=== PATIENT | male | born 1990 | race Hispanic/Latino ===

== ENCOUNTER 2018-11-29 02:53 | Emergency (ER) | payer SELFPAY ==
--- OUTSIDE RECORDS SUMMARY | 2018-11-29 02:56 | XMS REPORT ---
:1990 [facility] Address [address] [place] [address] [address] [place] [address] Care Team Providers Name Role Phone Unavailable Unavailable Unavailable Payers Payer Name Policy Type Policy Number Effective Date Expiration Date Problems This patient has no known problems. Allergies, Adverse Reactions, Alerts Allergy Allergy Status Severity Reaction(s) Onset Inactive Treating Comments Name Type Date Date Clinician No Known DA Active U 2016-03 Allergies -11 00:00:0 0 Medications This patient has no known medications. Results Test Description Test Time Test Comments Text Results Atomic Results Result Comments - 2018-10-07 FAX: Rafat Giordano MD [place]: St: ABDOMEN 09:06:00 REG LTD Name: YARY KRUSE [facility] : 1990 Age/S: 28/M [address] [facility] Unit # : [id number] Loc: [place], [place] [id number] Acct : [id number] Dis Date: Status: REG ER PHONE #: [phone] Exam Date: 10/07/2018 0854 FAX #: [phone] Reason: RUQ pain EXAMS: CPT CODE: [id number] US ABDOMEN LTD [id number] EXAMINATION: - US ABDOMEN LTD. LOCATION: R16. HISTORY: RUQ pain. COMPARISON: CT abdomen and pelvis 10/07/2018. TECHNIQUE : Multiple grayscale, pulse Doppler and color Doppler images of the right upper quadrant of the abdomen were obtained. FINDINGS: The visualized liver parenchyma is homogeneous in echogenicity. The main portal vein is patent. There is no intra or extrahepatic biliary ductal dilatation. The common duct measures 5 mm. The contracted gallbladder demonstrates calculi with posterior shadowing demonstrating PRASAD sign. The gallbladder wall is prominent at 4-5 mm. Nonvisualization of pancreas due to overlying bowel gas. The right kidney measures 11.5 cm. There is no hydronephrosis. The visualized portions of abdominal aorta and IVC appear unremarkable. IMPRESSION: Contracted gallbladder with calculi demonstrating "PRASAD sign". Gallbladder wall prominence, presumably due to underdistention. Electronically Signed by Daniel Toribio on 2018 at 0906 Reported and signed by: Jonas Toribio M.D. CC: Rafat Giordano MD Technologist: LETTY MNIOR Trnscrd Date/Time/By: 10/07/2018 (0906) : By: [email or web address] PAGE 1 Signed Report FAX: Rafat Giordano MD [place]: St: REG --------- Name: YARY KRUSE [facility] : 1990 Age/S: 28/M [address] [facility] Unit # : [id number] Loc: [place], [place] : [place] [id number] Acct : [id number] Dis Date: Status: REG ER PHONE #: [phone] Exam Date: 10/07/2018 0854 FAX #: [phone] Reason: RUQ pain EXAMS: CPT CODE: [id number] US ABDOMEN LTD [id number] <Continued> Orig Print D/T: S: 10/07/2018 (8703) PAGE 2 Signed Report - CT ABD 2018-10-07 FAX: Rafat Giordano MD [place]: St: PELVIS 08:51:00 REG W/CONT Name: YARY KRUSE [facility] : 1990 Age/S: 28/M [address] [facility] Unit: [id number] Loc: [place], [place]: [place] [id number] Acct: [id number] Dis Date: Status: REG ER PHONE #: [phone] Exam Date: 10/07/2018 0840 FAX #: [phone] Reason: diffuse abd tenderness EXAMS: CPT CODE: [id number] CT ABD PELVIS W/CONT 81009 Contrast-enhanced CT of the abdomen and pelvis Location R 16 CLINICAL INDICATION: Abdominal pain COMPARISON: 05/02/[address] is obtained from lung bases to inferior pubic rami after intravenous contrast with axial, coronal and sagittal reconstructions provided. One or more the following dose reduction techniques were used: Automated exposure control, adjustment of mA and/or kV according to patient size, and use of iterative reconstruction technique. DLP 779.60 mGy-cm. Lung bases are clear. Heart is normal in size. Great vessels are normal in caliber. Liver, spleen, pancreas, stomach, kidneys and adrenal glands are unremarkable. Gallbladder wall appears thickened. Unopacified bowel is within normal limits. Normal appendix is noted. Urinary bladder, prostate, rectum and perirectal soft tissues are within normal limits. Bony structures are unremarkable. IMPRESSION: Gallbladder wall may be thickened, otherwise unremarkable CT of the abdomen and pelvis at 0851 Reported and signed by: Latisha Eller M.D. CC: Rafat Giordano MD Technologist: DIAMOND BRISCOE Trnscrd Dt/Tm: 10/07/2018 (0851) Gloria Orig Print D/ T: S: 10/07/2018 (0854 PAGE 1 Signed Report DRUGS OF ABUSE SCREEN UR 2018-10-07 08:03:00 Test Item Value Reference Range Comments URN COCAINE (test code=COCAURN) NEGATIVE NEGATIVE Cocaine cut-off concentration: 300 ng/mL URN CANNABINOIDS (test NEGATIVE NEGATIVE Cannabinoids cut-off code=CANNABURN) concentration: 50 ng/mL URN AMPHETAMINE (test NEGATIVE NEGATIVE Amphetamine cut-off code=AMPHETURN) concentration: 1000 ng/mL URN BARBITURATE (test NEGATIVE NEGATIVE Barbiturate cut-off code=BARBITURN) concentration: 200 ng/mL URN BENZODIAZEPINE (test NEGATIVE NEGATIVE Benzodiazepine cut-off code=BENZOURN) concentration: 200 ng/mL URN OPIATES (test code=OPIATURN) NEGATIVE NEGATIVE Opiates cut-off concentration: 200 ng/mL URN PHENCYCLIDINE (PCP) (test NEGATIVE NEGATIVE Phencyclidine(PCP) cut-off code=PHENCURN) concentration: 25 ng/ml URN METHADONE (test code=METHAURN) NEGATIVE NEGATIVE Methadone cut-off concentration: 300 ng/mL Specimen comments: Clean CatchBASIC METABOLIC [id number] 08:03:00 Test Item Value Reference Range Comments SODIUM (test code=NA) 139 mmol/l 134.0-147.0 POTASSIUM (test code=K) 3.7 mmol/L 3.6-5.2 CHLORIDE (test code=CL) 108 mmol/l 98.0-107.0 CARBON DIOXIDE (test code=CO2) 24.0 mmol/l 21.0-33.0 ANION GAP (test code=GAP) 10.7 0-20 GLUCOSE (test code=GLU) 91 mg/dl 70.0-110.0 BLOOD UREA NITROGEN (test code=BUN) 25 mg/dl 7.0-18.0 CREATININE (test code=CREAT) 1.17 mg/dL 0.60-1.30 GFR NON BLACK (test code=GFRNONBLACK) 78 mL/min 105-110 GFR BLACK (test code=GFRBLACK) 94 mL/min 127-133 CALCIUM (test code=CA) 8.2 mg/dl 8.0-10.5 HEPATIC FUNCTION PANEL [id number] 08:03:00 Test Item Value Reference Range Comments TOTAL PROTEIN (test code=PROT) 7.7 gm/dL 6.4-8.2 ALBUMIN (test code=ALB) 4.0 gm/dl 3.2-4.7 BILIRUBIN TOTAL (test code=BILT) 0.5 mg/dl 0.0-1.0 BILIRUBIN DIRECT (test code=BILD) 0.1 mg/dl 0.0-0.3 SGOT/AST (test code=AST) 13 Units/L 15.0-37.0 SGPT/ALT (test code=ALT) 29 Units/L 12.0-78.0 ALKALINE PHOSPHATASE TOTAL (test code=ALKP) 48 Units/L 50.0-136.0 [id number] 08:03:00 Test Item Value Reference Range Comments LIPASE (test code=LIP) 283 Units/L 65.0-230.0 URINALYSIS [id number] 07:56:00 Test Item Value Reference Range Comments UA COLOR (test code=COLU) YELLOW UA APPEARANCE (test code=APPU) CLEAR UA GLUCOSE DIPSTICK (test code=DGLUU) NORMAL mg/dl NORMAL UA BILIRUBIN DIPSTICK (test code=BILU) NEGATIVE mg/dL NEGATIVE UA KETONE DIPSTICK (test code=KETU) NEGATIVE mg/dl NEGATIVE UA SPECIFIC GRAVITY (test code=SGU) 1.020 1.000-1.030 UA BLOOD DIPSTICK (test code=STEPHEN) NEGATIVE Daryl/micL NEGATIVE UA PH DIPSTICK (test code=JA) 6.0 5.0-9.0 UA PROTEIN DIPSTICK (test code=PROU) NEGATIVE mg/dl NEGATIVE UA UROBILINIOGEN DIPSTICK (test code=URO) NORMAL mg/dl NORMAL UA NITRITE DIPSTICK (test code=DANIELLA) NEGATIVE NEGATIVE UA LEUKOCYTE ESTERASE DIPSTICK (test NEGATIVE Vanessa/micL NEGATIVE code=LEUU) UA WBC (test code=WBCU) 1-3/HPF WBC/HPF NONE UA RBC (test code=RBCU) 1-3 RBC/HPF 0-3 UA EPITHELIAL CELLS (test code=EPIU) 2-5 EPI/HPF 0-3 UA BACTERIA (test code=BACU) FEW NONE Specimen comments: Clean CatchBASIC METABOLIC [id number] 07:55:00 Test Item Value Reference Range Comments SODIUM (test code=NA) 139 mmol/l 134.0-147.0 POTASSIUM (test code=K) 3.7 mmol/L 3.6-5.2 CHLORIDE (test code=CL) 108 mmol/l 98.0-107.0 CARBON DIOXIDE (test code=CO2) 24.0 mmol/l 21.0-33.0 ANION GAP (test code=GAP) 10.7 0-20 GLUCOSE (test code=GLU) mg/dl 70.0-110.0 BLOOD UREA NITROGEN (test code=BUN) mg/dl 7.0-18.0 CREATININE (test code=CREAT) mg/dL 0.60-1.30 GFR NON BLACK (test code=GFRNONBLACK) mL/min 105-110 GFR BLACK (test code=GFRBLACK) mL/min 127-133 CALCIUM (test code=CA) mg/dl 8.0-10.5 HEPATIC FUNCTION PANEL [id number] 07:55:00 Test Item Value Reference Range Comments TOTAL PROTEIN (test code=PROT) gm/dL 6.4-8.2 ALBUMIN (test code=ALB) gm/dl 3.2-4.7 BILIRUBIN TOTAL (test code=BILT) mg/dl 0.0-1.0 BILIRUBIN DIRECT (test code=BILD) mg/dl 0.0-0.3 SGOT/AST (test code=AST) Units/L 15.0-37.0 SGPT/ALT (test code=ALT) Units/L 12.0-78.0 ALKALINE PHOSPHATASE TOTAL (test code=ALKP) Units/L 50.0-136.0 [id number] 07:55:00 Test Item Value Reference Range Comments LIPASE (test code=LIP) Units/L 65.0-230.0 CBC W/AUTO [id number] 07:53:00 Test Item Value Reference Range Comments WHITE BLOOD CELL (test code=WBC) 7.2 K/mm3 4.5-11.0 RED BLOOD CELL (test code=RBC) 5.32 M/mm3 4.40-5.90 HEMOGLOBIN (test code=HGB) 15.5 gm/dL 13.0-17.0 HEMATOCRIT (test code=HCT) 48.8 % 36.0-48.0 MEAN CELL VOLUME (test code=MCV) 91.7 UM3 80.0-94.0 MEAN CELL HGB (test code=MCH) 29.1 UUG 25.5-32.5 MEAN CELL HGB CONCETRATION (test code=MCHC) 31.8 gm/dL 29.0-35.5 RED CELL DISTRIBUTION WIDTH (test code=RDW) 13.0 % 11.5-15.0 RED CELL DISTRIBUTION WIDTH SD (test 43.6 fL 34.8-50.2 code=RDW-SD) PLATELET COUNT (test code=PLT) 189 K/mm3 150-400 MEAN PLATELET VOLUME (test code=MPV) 11.6 fl 7.4-10.4 NEUTROPHIL % (test code=NT%) 64.4 % 49.0-76.0 IMMATURE GRANULOCYTE % (test code=IG%) 0.6 % 0.0-0.4 LYMPHOCYTE % (test code=LY%) 25.0 % 23.0-38.0 MONOCYTE % (test code=MO%) 7.0 % 1.0-10.0 EOSINOPHIL % (test code=EO%) 2.4 % 1.0-5.0 BASOPHIL % (test code=BA%) 0.6 % 0.0-1.0 NEUTROPHIL # (test code=NT#) 4.6 K/mm3 2.4-6.3 IMMATURE GRANULOCYTE # (test code=IG#) 0.04 x10 3/uL 0.00-0.07 LYMPHOCYTE # (test code=LY#) 1.8 K/mm3 1.2-4.0 MONOCYTE # (test code=MO#) 0.5 K/mm3 0.0-0.6 EOSINOPHIL # (test code=EO#) 0.2 K/MM3 0.0-0.7 BASOPHIL # (test code=BA#) 0.0 K/mm3 0.0-0.2 URINALYSIS [id number] 07:51:00 Test Item Value Reference Range Comments UA COLOR (test code=COLU) YELLOW UA APPEARANCE (test code=APPU) CLEAR UA GLUCOSE DIPSTICK (test code=DGLUU) NORMAL mg/dl NORMAL UA BILIRUBIN DIPSTICK (test code=BILU) NEGATIVE mg/dL NEGATIVE UA KETONE DIPSTICK (test code=KETU) NEGATIVE mg/dl NEGATIVE UA SPECIFIC GRAVITY (test code=SGU) 1.020 1.000-1.030 UA BLOOD DIPSTICK (test code=STEPHEN) NEGATIVE Daryl/micL NEGATIVE UA PH DIPSTICK (test code=JA) 6.0 5.0-9.0 UA PROTEIN DIPSTICK (test code=PROU) NEGATIVE mg/dl NEGATIVE UA UROBILINIOGEN DIPSTICK (test code=URO) NORMAL mg/dl NORMAL UA NITRITE DIPSTICK (test code=DANIELLA) NEGATIVE NEGATIVE UA LEUKOCYTE ESTERASE DIPSTICK (test NEGATIVE Vanessa/micL NEGATIVE code=LEUU) UA WBC (test code=WBCU) WBC/HPF NONE UA RBC (test code=RBCU) RBC/HPF 0-3 UA EPITHELIAL CELLS (test code=EPIU) EPI/HPF 0-3 UA BACTERIA (test code=BACU) NONE Specimen comments: Clean Catch
[2018-11-29 03:35] LABS: Absolute Lymphocytes (CBC) 1.9 K/uL (0.7-4.9); Basophils % 0.5 % (0-1.3); Hematocrit 45.3 % (39.6-49.0); Lymphocytes % 14.4 % (15.3-44.8); MPV 9.8 fL (7.6-11.3); RBC Red Blood Cell Count 5.07 M/uL (4.33-5.43)
[2018-11-29] MEDS ORDERED: ONDANSETRON 4 MG/2 ML VIAL ONE (03:49)
[2018-11-29] MEDS ORDERED: HYDROMORPHONE HCL 1 MG/ML INJ ONE (03:49)
[2018-11-29] MEDS ORDERED: NA CHLORIDE 0.9% 1,000 ML ONE ×2 (03:50→07:33)
[2018-11-29] MEDS ORDERED: FAMOTIDINE 20 MG/2 ML VIAL IV ONE (03:50)
[2018-11-29 04:03] LABS: Albumin 4.3 g/dL (3.4-5.0); Bilirubin Direct 0.2 mg/dL (0-0.2); Bilirubin Total 0.4 mg/dL (0.2-1.0); Potassium 3.7 mmol/L (3.5-5.1); Protein, Total 7.7 g/dL (6.4-8.2)
--- NOTE | 2018-11-29 06:10 | ER ---
Nurse's Notes [facility] Name: Fawad Olivarez Age: 28 yrs Sex: Male : 1990 Arrival Date: 11/29/2018 Time: 02:55 Bed 13 Private MD: Diagnosis: Abdominal tenderness;Cholecystitis;Cholelithiasis Presentation: 11/29 03:13 Presenting complaint: Patient states: I am having pain on the right side of my stomach jb4 that started 1 hour ago. Transition of care: patient was not received from another setting of care. Onset of symptoms was November 29, 2018. Risk Assessment: Do you want to hurt yourself or someone else? Patient reports no desire to harm self or others. Initial Sepsis Screen: Does the patient meet any 2 criteria? No. Patient's initial sepsis screen is negative. Does the patient have a suspected source of infection? Yes: Acute abdominal pain. Care prior to arrival: None. 03:13 Method Of Arrival: Ambulatory jb4 03:13 Acuity: LASHAY 3 jb4 Historical: - Allergies: 03:15 No Known Allergies; jb4 - Home Meds: 03:15 None [Active]; jb4 - PMHx: 03:15 Seizures; jb4 - PSHx: 03:15 None; jb4 - Immunization history:: Adult Immunizations up to date. - Social history:: Smoking status: Patient/guardian denies using tobacco, Patient uses alcohol, occasionally. - Ebola Screening: : No symptoms or risks identified at this time. - Family history:: not pertinent. Screenin:15 Abuse screen: Denies threats or abuse. Nutritional screening: No deficits noted. jb4 Tuberculosis screening: No symptoms or risk factors identified. Fall Risk None identified. Assessment: 03:15 General: Appears in no apparent distress. uncomfortable, Behavior is calm, cooperative, jb4 appropriate for age. Pain: Complains of pain in right upper quadrant Pain does not radiate. Pain currently is 10 out of 10 on a pain scale. Quality of pain is described as stabbing. Neuro: Level of Consciousness is awake, alert, obeys commands, Oriented to person, place, time, situation. Cardiovascular: Patient's skin is warm and dry. Respiratory: Airway is patent Respiratory effort is unlabored, shallow, Respiratory pattern is regular, symmetrical. GI: Reports upper abdominal pain. : No signs and/or symptoms were reported regarding the genitourinary system. EENT: No signs and/or symptoms were reported regarding the EENT system. Derm: Skin is intact, Skin is pink, warm \T\ dry. Musculoskeletal: Circulation, motion, and sensation intact. Range of motion: intact in all extremities. 04:48 Reassessment: Patient appears in no apparent distress at this time. Patient and/or jb4 family updated on plan of care and expected duration. Pain level reassessed. Patient is alert, oriented x 3, equal unlabored respirations, skin warm/dry/pink. PT reports feeling pain, but that it is tolerable Patient states feeling better. Respiratory: Airway is patent Respiratory effort is even, unlabored, Respiratory pattern is regular, symmetrical. 05:45 Reassessment: Patient appears in no apparent distress at this time. Patient and/or jb4 family updated on plan of care and expected duration. Pain level reassessed. Patient is alert, oriented x 3, equal unlabored respirations, skin warm/dry/pink. 07:00 Reassessment: Patient appears in no apparent distress at this time. Patient and/or jb4 family updated on plan of care and expected duration. Pain level reassessed. Patient is alert, oriented x 3, equal unlabored respirations, skin warm/dry/pink. PT is resting in bed, reports pain is tolerable. report given to TAYA Howard. IV flushes with ease, antibiotics running. 07:05 General: Appears in no apparent distress. comfortable, Behavior is calm, cooperative. rb1 Pain: Pain currently is 5 out of 10 on a pain scale. Neuro: Level of Consciousness is awake, alert, obeys commands, Oriented to person, place, time, situation. Cardiovascular: Capillary refill < 3 seconds is brisk in bilateral fingers. Respiratory: Airway is patent Respiratory effort is even, unlabored, Respiratory pattern is regular, symmetrical. GI: Reports upper abdominal pain. : No signs and/or symptoms were reported regarding the genitourinary system. Derm: Skin is pink, warm \T\ dry. 07:39 Reassessment: Report called to TAYA Torres at [facility]. jb4 08:00 Reassessment: Patient appears in no apparent distress at this time. Patient and/or rb1 family updated on plan of care and expected duration. Pain level reassessed. Patient is alert, oriented x 3, equal unlabored respirations, skin warm/dry/pink. 08:05 Reassessment: US came to get the pt. Informed her that EMS would be here soon to take rb1 the pt. to [place]. Verbalized understanding. Vital Signs: 03:15 BP 125 / 83; Pulse 56; Resp 16; Temp 98.4(O); Pulse Ox 100% on R/A; Weight 108.86 kg jb4 (R); Height 6 ft. 5 in. (195.58 cm) (R); Pain 10/10; 04:45 BP 117 / 76; Pulse 51; Resp 16; Pulse Ox 98% on R/A; jb4 05:45 BP 112 / 71; Pulse 59; Resp 16; Pulse Ox 100% on R/A; jb4 07:15 BP 111 / 67; Pulse 54; Resp 18; Temp 97.6(O); Pulse Ox 100% on R/A; jb4 08:10 BP 115 / 65; Pulse 59; Resp 17; Temp 97.9(O); Pulse Ox 99% on R/A; Pain 5/10; rb1 03:15 Body Mass Index 28.46 (108.86 kg, 195.58 cm) jb4 ED Course: 02:55 Patient arrived in ED. ss2 03:06 Hair Jones, RN is Primary Nurse. jb4 03:06 Elian Foley MD is Attending Physician. timothy 03:15 Triage completed. jb4 03:15 Arm band placed on left wrist. jb4 03:15 Patient has correct armband on for positive identification. Bed in low position. Call jb4 light in reach. Side rails up X2. Pulse ox on. NIBP on. 03:25 Initial lab(s) drawn, by me, sent to lab. Inserted saline lock: 20 gauge in left jb4 antecubital area, using aseptic technique. 04:56 CT completed. Patient tolerated procedure well. Patient moved to CT via stretcher. Patient moved back from CT. 04:59 CT Abd/Pelvis - IV Contrast Only In Process Unspecified. EDMS 06:[address] Foley with Jackie from the [facility]. eb 06:34 connected the GI content designer for [facility] Dr. Spencer with Dr. Foley for patient eb transfer consultation. 06:47 connected the hospitalist content designer Dr. Lin for [facility] with Dr. Foley for eb patient transfer consultation. 06:[address] Lin again with Dr. Foley for patient transfer consultation. eb 06:56 administrative approval given by Jackie Sung RN scanning coordinator/ patient has been eb accepted to [facility] Bed 1143/ Dr. Angel has accepted the patient in transfer/ report to be called to [phone]. 07:00 Report given to TAYA Howard. jb4 08:14 US Abdomen Limited In Process Unspecified. EDMS 08:19 No provider procedures requiring assistance completed. Patient transferred, IV remains rb1 in place. Administered Medications: 03:45 Drug: Pepcid 20 mg Route: IVP; Site: left antecubital; jb4 06:01 Follow up: Response: No adverse reaction jb4 03:46 Drug: Zofran 4 mg Route: IVP; Site: left antecubital; jb4 04:10 Follow up: Response: No adverse reaction; Nausea is decreased jb4 03:48 Drug: NS 0.9% 1000 ml Route: IV; Rate: 1 bolus; Site: left antecubital; jb4 04:45 Follow up: Response: No adverse reaction; IV Status: Completed infusion; IV Intake: jb4 1000ml 03:49 Drug: Dilaudid 1 mg Route: IVP; Site: left antecubital; jb4 04:10 Follow up: Response: No adverse reaction; Pain is decreased jb4 06:29 Drug: Zosyn 3.375 grams Route: IVPB; Infused Over: 60 mins; Site: left antecubital; jb4 07:22 Drug: NS 0.9% 1000 ml Route: IV; Rate: 125 ml/hr; Site: left antecubital; jb4 08:19 Follow up: IV Status: Infusion continued upon transfer rb1 Intake: 04:45 IV: 1000ml; Total: 1000ml. jb4 Outcome: 06:10 ER care complete, transfer ordered by MD. aguirre 08:19 Patient left the ED. rb1 08:19 Transferred by ground EMS to [facility], Transfer form completed. rb1 08:19 Condition: stable 08:19 Instructed on the need for transfer. Signatures: Dispatcher [employer] Elian Wills MD MD cha Hagler, Ervin eh Barber, Rebecca, RN RN [facility] Irasema [facility] Hair Jones RN RN jb4 Viktoriya Sumner Corrections: (The following items were deleted from the chart) 06:54 06:47 connected the hospitalist content designer for [facility] with Dr. Foley for eb patient transfer consultation. 07:31 07:00 Reassessment: Patient appears in no apparent distress at this time. Patient jb4 and/or family updated on plan of care and expected duration. Pain level reassessed. Patient is alert, oriented x 3, equal unlabored respirations, skin warm/dry/pink. jb4
--- NOTE | 2018-11-29 06:11 | EDPHYS ---
Physician Documentation [facility] Name: Fawad Olivarez Age: 28 yrs Sex: Male : 1990 Arrival Date: 11/29/2018 Time: 02:55 Bed 13 Private MD: ED Physician Elian Foley HPI: 11/29 03:22 This 28 yrs old Male presents to ER via Ambulatory with complaints of timothy abdominal pain. 03:22 The patient presents with abdominal pain in the upper abdomen, in the right upper timothy quadrant. Onset: The symptoms/episode began/occurred just prior to arrival, this morning. The symptoms do not radiate. Associated signs and symptoms: Pertinent positives: nausea. Modifying factors: The symptoms are alleviated by nothing, the symptoms are aggravated by food. Severity of pain: At its worst the pain was moderate in the emergency department the pain is unchanged. The patient has not experienced similar symptoms in the past. Historical: - Allergies: 03:15 No Known Allergies; jb4 - Home Meds: 03:15 None [Active]; jb4 - PMHx: 03:15 Seizures; jb4 - PSHx: 03:15 None; jb4 - Immunization history:: Adult Immunizations up to date. - Social history:: Smoking status: Patient/guardian denies using tobacco, Patient uses alcohol, occasionally. - Ebola Screening: : No symptoms or risks identified at this time. - Family history:: not pertinent. ROS: 03:22 Constitutional: Negative for fever, chills, and weight loss, Eyes: Negative for injury, timothy pain, redness, and discharge, ENT: Negative for injury, pain, and discharge, Neck: Negative for injury, pain, and swelling, Cardiovascular: Negative for chest pain, palpitations, and edema, Respiratory: Negative for shortness of breath, cough, wheezing, and pleuritic chest pain, Back: Negative for injury and pain, : Negative for injury, bleeding, discharge, and swelling, MS/Extremity: Negative for injury and deformity, Skin: Negative for injury, rash, and discoloration, Neuro: Negative for headache, weakness, numbness, tingling, and seizure, Psych: Negative for depression, anxiety, suicide ideation, homicidal ideation, and hallucinations, Allergy/Immunology: Negative for hives, rash, and allergies, Endocrine: Negative for neck swelling, polydipsia, polyuria, polyphagia, and marked weight changes, Hematologic/Lymphatic: Negative for swollen nodes, abnormal bleeding, and unusual bruising. 03:22 Abdomen/GI: Positive for abdominal pain, of the epigastric area, right upper quadrant and left upper quadrant. Exam: 03:22 Constitutional: This is a well developed, well nourished patient who is awake, alert, timothy and in no acute distress. Head/Face: Normocephalic, atraumatic. Eyes: Pupils equal round and reactive to light, extra-ocular motions intact. Lids and lashes normal. Conjunctiva and sclera are non-icteric and not injected. Cornea within normal limits. Periorbital areas with no swelling, redness, or edema. ENT: Nares patent. No nasal discharge, no septal abnormalities noted. Tympanic membranes are normal and external auditory canals are clear. Oropharynx with no redness, swelling, or masses, exudates, or evidence of obstruction, uvula midline. Mucous membranes moist. Neck: Trachea midline, no thyromegaly or masses palpated, and no cervical lymphadenopathy. Supple, full range of motion without nuchal rigidity, or vertebral point tenderness. No Meningismus. Chest/axilla: Normal chest wall appearance and motion. Nontender with no deformity. No lesions are appreciated. Cardiovascular: Regular rate and rhythm with a normal S1 and S2. No gallops, murmurs, or rubs. Normal PMI, no JVD. No pulse deficits. Respiratory: Lungs have equal breath sounds bilaterally, clear to auscultation and percussion. No rales, rhonchi or wheezes noted. No increased work of breathing, no retractions or nasal flaring. Back: No spinal tenderness. No costovertebral tenderness. Full range of motion. Male : Normal genitalia with no discharge or lesions. Skin: Warm, dry with normal turgor. Normal color with no rashes, no lesions, and no evidence of cellulitis. MS/ Extremity: Pulses equal, no cyanosis. Neurovascular intact. Full, normal range of motion. Neuro: Awake and alert, GCS 15, oriented to person, place, time, and situation. Cranial nerves II-XII grossly intact. Motor strength 5/5 in all extremities. Sensory grossly intact. Cerebellar exam normal. Normal gait. Psych: Awake, alert, with orientation to person, place and time. Behavior, mood, and affect are within normal limits. 03:22 Abdomen/GI: Inspection: abdomen appears normal, Bowel sounds: normal, Palpation: mild abdominal tenderness, moderate abdominal tenderness, in the epigastric area, right upper quadrant and left upper quadrant, Liver: no appreciated palpable abnormalities, Hernia: not appreciated. Vital Signs: 03:15 BP 125 / 83; Pulse 56; Resp 16; Temp 98.4(O); Pulse Ox 100% on R/A; Weight 108.86 kg jb4 (R); Height 6 ft. 5 in. (195.58 cm) (R); Pain 10/10; 04:45 BP 117 / 76; Pulse 51; Resp 16; Pulse Ox 98% on R/A; jb4 05:45 BP 112 / 71; Pulse 59; Resp 16; Pulse Ox 100% on R/A; jb4 07:15 BP 111 / 67; Pulse 54; Resp 18; Temp 97.6(O); Pulse Ox 100% on R/A; jb4 08:10 BP 115 / 65; Pulse 59; Resp 17; Temp 97.9(O); Pulse Ox 99% on R/A; Pain 5/10; rb1 03:15 Body Mass Index 28.46 (108.86 kg, 195.58 cm) jb4 MDM: 03:06 Patient medically screened. [facility] 03:22 Data reviewed: vital signs, nurses notes, lab test result(s), radiologic studies, CT timothy scan, plain films. 11/29 03:22 Order name: Basic Metabolic Panel [facility] 11/29 03:22 Order name: CBC with Diff; Complete Time: 04:24 [facility] 11/29 03:22 Order name: Creatinine for Radiology; Complete Time: 04:24 [facility] 11/29 03:22 Order name: Hepatic Function; Complete Time: 04:24 [facility] 11/29 03:22 Order name: Lipase; Complete Time: 04:24 [facility] 11/29 03:23 Order name: Basic Metabolic Panel; Complete Time: 04:24 [facility] 11/29 03:22 Order name: CT Abd/Pelvis - IV Contrast Only [facility] 11/29 06:55 Order name: US Abdomen Limited [facility] 11/29 03:22 Order name: IV Saline Lock; Complete Time: 03:51 [facility] 11/29 03:22 Order name: Labs collected and sent; Complete Time: 03:51 timothy Administered Medications: 03:45 Drug: Pepcid 20 mg Route: IVP; Site: left antecubital; jb4 06:01 Follow up: Response: No adverse reaction jb4 03:46 Drug: Zofran 4 mg Route: IVP; Site: left antecubital; jb4 04:10 Follow up: Response: No adverse reaction; Nausea is decreased jb4 03:48 Drug: NS 0.9% 1000 ml Route: IV; Rate: 1 bolus; Site: left antecubital; jb4 04:45 Follow up: Response: No adverse reaction; IV Status: Completed infusion; IV Intake: jb4 1000ml 03:49 Drug: Dilaudid 1 mg Route: IVP; Site: left antecubital; jb4 04:10 Follow up: Response: No adverse reaction; Pain is decreased jb4 06:29 Drug: Zosyn 3.375 grams Route: IVPB; Infused Over: 60 mins; Site: left antecubital; jb4 07:22 Drug: NS 0.9% 1000 ml Route: IV; Rate: 125 ml/hr; Site: left antecubital; jb4 08:19 Follow up: IV Status: Infusion continued upon transfer rb1 Disposition: 11/29/18 06:10 Transfer ordered to [facility]. Diagnosis are Abdominal tenderness, Cholecystitis, Cholelithiasis. - Reason for transfer: Higher level of care. - Accepting physician is to [facility]. - Condition is Stable. - Problem is new. - Symptoms have improved. Signatures: Dispatcher [employer] EDElian Carrington MD MD cha Barber, Rebecca, RN RN rb1 Hair Jones RN RN jb4 Corrections: (The following items were deleted from the chart) 06:10 11/29/2018 06:10 Transfer ordered to [facility]. Diagnosis is rb1 Abdominal tenderness; Cholecystitis; Cholelithiasis. Reason for transfer: Higher level of care. Accepting physician is to [facility]. Condition is Stable. Problem is new. Symptoms have improved. timothy
[2018-11-29] MEDS ORDERED: PIPER/TAZO/NS 3.375gm 3.375 GM/100 ML BAG ONE (06:38)
--- NOTE | 2018-11-29 09:14 | RAD REPORT ---
EXAM DESCRIPTION: US - Abdomen Exam Limited - 11/29/2018 8:14 am CLINICAL HISTORY: Abdominal pain COMPARISON: CT study same date FINDINGS: Gallbladder size is normal. Numerous gallstones are present filling the majority of the ga llbladder lumen. This pattern matches the prior study. Gallbladder wall is slightly thickened and por tions of the gallbladder. No masslike thickening of the wall. Deep wall assessment is limited due to the shadowing of numerous gallstones. No pericholecystic fluid seen. Common bile duct is 5 mm. No duct stone is identifiable. Intrahepatic biliary tree dilatation is not suspected. IMPRESSION: Multi stone cholelithiasis and gallbladder wall thickening within a normal gallbladder. Numerous gallstones are present filling the majority of the gallbladder lumen. Biliary tree is not dilated. No duct stone is identifiable.
--- NOTE | 2018-11-29 09:49 | RAD REPORT ---
EXAM DESCRIPTION: CT - Abdomen Pelvis W Contrast - 11/29/2018 5:56 am CLINICAL HISTORY: The patient is 64 years old and is Female; PAIN TECHNIQUE: Axial computed tomographic angiography images of the chest, abdomen and pelvis with intra venous contrast using CT angiography protocol. Sagittal and coronal reformatted images were created and reviewed. This CT exam was performed using one or more of the following dose reduction techniq ues: automated exposure control, adjustment of the mA and/or kV according to patient size, and/or u se of iterative reconstruction technique. MIP reconstructed images were created and reviewed. COMPARISON: No relevant prior studies available. FINDINGS: VASCULATURE: AORTA: Minimal atherosclerosis of the aorta is present. Extensive atherosclerosis involving th e infrarenal abdominal aorta. No aortic aneurysm. No dissection. PULMONARY ARTERIES: Unremarkable as visualized. No pulmonary embolism is identified. GREAT VESSELS OF AORTIC ARCH: No acute findings. No dissection. No arterial occlusion or sig nificant stenosis. CELIAC TRUNK AND MESENTERIC ARTERIES: No acute findings. No occlusion or significant stenosis. RENAL ARTERIES: No acute findings. No occlusion or significant stenosis. ILIAC ARTERIES: No acute findings. No occlusion or significant stenosis. CHEST: LUNGS: The lungs are hyperinflated with mild bilateral centrilobular emphysematous change. Calci fied granuloma within the right lower lobe is present. The lungs are otherwise clear. PLEURAL SPACE: Unremarkable. No significant effusion. No pneumothorax. HEART: Unremarkable. No cardiomegaly. No significant pericardial effusion. ABDOMEN: LIVER: The liver is a diffuse nodular contour and is heterogeneous in appearance. There is a pun ctate 4 mm focus within the right hepatic lobe which is too small to accurately characterize. GALLBLADDER AND BILE DUCTS: Calcified gallstones are present. Pericholecystic inflammation with gallbladder wall thickening/enhancement is noted. No ductal dilation. PANCREAS: Unremarkable. No ductal dilation. No mass. SPLEEN: The spleen has a mottled appearance which may be secondary to the arterial phase of the exam. The spleen is enlarged. ADRENALS: Unremarkable. No mass. KIDNEYS AND URETERS: Unremarkable. No hydronephrosis. No solid mass. STOMACH AND BOWEL: The stomach is distended with food contents. The small bowel is normal in cari iber. A moderate amount of stool is present throughout colon. There is no mucosal thickening or evide nce of bowel obstruction. PELVIS: APPENDIX: No findings to suggest acute appendicitis. BLADDER: The bladder is minimally distended. REPRODUCTIVE: The patient is status post hysterectomy. CHEST, ABDOMEN and PELVIS: INTRAPERITONEAL SPACE: Unremarkable. No significant fluid collection. No free air. BONES/JOINTS: Bilateral avascular necrosis of the femoral heads is noted. The bones have a sligh tly mottled appearance without discrete mass. Degenerative change at L2-L3 is noted. No acute fract ure. No dislocation. SOFT TISSUES: Unremarkable. LYMPH NODES: Several prominent aracely hepatis lymph nodes are present, the largest of which measu res 2.8 cm. Few prominent retroperitoneal and periaortic lymph nodes are present. IMPRESSION: 1. No evidence of aortic aneurysm or dissection. Extensive atherosclerosis of the aort a. 2. Cirrhotic liver and splenomegaly. 3. Cholelithiasis with findings concerning for acute cholecystitis. 4. Peripancreatic, periaortic, and retroperitoneal adenopathy. Electronically signed by: Nila Pinto MD 11/29/2018 1:06 AM CDT Due to temporary technical issues with the PACS/Fluency reporting system, reports are being signed by the in house radiologist as a courtesy to ensure prompt reporting. The interpreting radiologist is f ully responsible for the content of the report.
== END 2018-11-29 08:19 | disposition short-term general hospital (02) ==
LOC: ER 02:53
DX: K81.9 Cholecystitis, unspecified (principal); K80.20 Calculus of gallbladder without cholecystitis without obstruction
CPT/HCPCS: 36415; 74177; 76705; 80048; 80076; 83690; 85025; 96374; 96375; 99285; J1170; J2405; J2543; J7030

== ENCOUNTER 2018-12-03 00:38 | Observation (INO) | payer SELFPAY ==
--- OUTSIDE RECORDS SUMMARY | 2018-12-03 00:41 | XMS REPORT | Clinical Summary ---
:1990 Author Organization [facility] Address [address] [place] [address] Care Team Providers Name Role Phone Pcp, No Primary Care Provider Unavailable Allergies No Known Allergies Medications Medication Sig Dispensed Refills Start Date End Date Status topiramate (TOPAMAX) Take 100 mg 0 Active 100 MG tablet by mouth 2 (two) times daily. acetaminophen-codein Take 1 tablet 30 tablet 0 11/30/2018 12/10/2018 Active e (TYLENOL #4) by mouth 300-60 mg per tablet every 4 (four) hours as needed for Pain for up to 10 days. Max Daily Amount: 6 tablets ciprofloxacin HCl Take 1 tablet 14 tablet 0 11/30/2018 12/07/2018 Active (CIPRO) 500 MG (500 mg tablet total) by mouth 2 (two) times daily for 7 days. metroNIDAZOLE Take 1 tablet 21 tablet 0 11/30/2018 12/07/2018 Active (FLAGYL) 500 MG (500 mg tablet total) by mouth 3 (three) times daily for 7 days. ondansetron Take 1 tablet 20 tablet 0 11/30/2018 12/07/2018 Active (ZOFRAN-ODT) 4 MG (4 mg total) disintegrating by mouth tablet every 8 (eight) hours as needed for up to 7 days. ondansetron Take 1 tablet 20 tablet 0 11/30/2018 11/30/2018 Discontinued (ZOFRAN-ODT) 4 MG (4 mg total) disintegrating by mouth tablet every 8 (eight) hours as needed for up to 7 days. acetaminophen-codein Take 1 tablet 30 tablet 0 11/30/2018 11/30/2018 Discontinued e (TYLENOL #4) by mouth 300-60 mg per tablet every 4 (four) hours as needed for Pain for up to 10 days. Max Daily Amount: 6 tablets ciprofloxacin HCl Take 1 tablet 14 tablet 0 11/30/2018 11/30/2018 Discontinued (CIPRO) 500 MG (500 mg tablet total) by mouth 2 (two) times daily for 7 days. metroNIDAZOLE Take 1 tablet 21 tablet 0 11/30/2018 11/30/2018 Discontinued (FLAGYL) 500 MG (500 mg tablet total) by mouth 3 (three) times daily for 7 days. Active Problems Problem Noted Date Acute cholecystitis 11/29/2018 Encounters Date Type Specialty Care Team Description 11/30/2018 Anesthesia Event Amelia Flores MD 11/29/2018 - Hospital Encounter Cardiology Jenny Angel Acute cholecystitis 11/30/2018 MD Clint Palacios, MD Marion Coker, Talha Fajardo MD 11/29/2018 Abstract Internal Medicine Jenny Angel MD after 12/02/2017 Social History Tobacco Use Types Packs/Day Years Used Date Never Assessed Sex Assigned at Date Recorded Not on file Job Start Date Occupation Industry Not on file Not on file Not on file Travel History Travel Start Travel End No recent travel history available. Last Filed Vital Signs Vital Sign Reading Time Taken Blood Pressure 108/61 11/30/2018 4:21 PM CDT Pulse 59 11/30/2018 4:21 PM CDT Temperature 36.2 C (97.2 F) 11/30/2018 4:21 PM CDT Respiratory Rate 18 11/30/2018 4:21 PM CDT Oxygen Saturation 100% 11/30/2018 4:21 PM CDT Inhaled Oxygen Concentration - - Weight - - Height - - Body Mass Index - - Plan of Treatment Not on file Procedures Procedure Name Priority Date/Time Associated Comments Diagnosis TRANSFUSION SERVICE 12/01/2018 6:00 REPORT - SCAN PM CDT [facility], MANUAL STAT 11/30/2018 2:24 Results for this PM CDT procedure are in the results section. TYPE AND SCREEN, STAT 11/30/2018 1:29 Results for this AUTOMATED PM CDT procedure are in the results section. APTT STAT 11/30/2018 1:29 Results for this PM CDT procedure are in the results section. PROTHROMBIN TIME/INR STAT 11/30/2018 1:29 Results for this PM CDT procedure are in the results section. CBC W/PLT COUNT & AUTO Routine 11/30/2018 6:23 Results for this DIFFERENTIAL AM CDT procedure are in the results section. CBC W/PLT COUNT & AUTO Routine 11/30/2018 6:23 Results for this DIFFERENTIAL AM CDT procedure are in the results section. PHOSPHORUS Routine 11/30/2018 6:23 Results for this AM CDT procedure are in the results section. MAGNESIUM Routine 11/30/2018 6:23 Results for this AM CDT procedure are in the results section. HEPATIC FUNCTION PANEL Routine 11/30/2018 6:23 Results for this AM CDT procedure are in the results section. BASIC METABOLIC PANEL Routine 11/30/2018 6:23 Results for this (7) AM CDT procedure are in the results section. MR ABDOMEN WO CONTRAST STAT 11/29/2018 6:54 Results for this MRCP PM CDT procedure are in the results section. NM HEPATOBILIARY Routine 11/29/2018 4:40 Results for this IMAGING W PHARM PM CDT procedure are in the results section. CBC W/PLT COUNT & AUTO Routine 11/29/2018 10:28 Results for this DIFFERENTIAL AM CDT procedure are in the results section. CBC W/PLT COUNT & AUTO Routine 11/29/2018 10:28 Results for this DIFFERENTIAL AM CDT procedure are in the results section. HEPATIC FUNCTION PANEL Routine 11/29/2018 10:28 Results for this AM CDT procedure are in the results section. BASIC METABOLIC PANEL Routine 11/29/2018 10:28 Results for this (7) AM CDT procedure are in the results section. BLOOD CULTURE Routine 11/29/2018 10:28 AM CDT BLOOD CULTURE Routine 11/29/2018 10:27 Results for this IDENTIFICATION PANEL AM CDT procedure are in the results section. BLOOD CULTURE Routine 11/29/2018 10:27 AM CDT after 12/02/2017 Results TRANSFUSION SERVICE REPORT - SCAN (12/01/2018 6:00 PM CDT) Narrative Performed At [facility], manual (11/30/2018 2:24 PM CDT) ABO Grouping A [facility] Rh Factor POS [facility] Specimen Blood Performing Organization Address City/State/Zipcode Phone Number [facility] [address] [phone] Type and screen, automated (11/30/2018 1:29 PM CDT) ABO/RH AUTOMATED (BEAKER) A POSITIVE [facility] Ab Scrn NEGATIVE [facility] Specimen Blood Performing Organization Address [facility] Phone Number [address] [phone] aPTT (11/30/2018 1:29 PM CDT) PTT 29.1 22.5 - 36.[address] [facility] Specimen Blood Performing Organization Address [facility] Phone Number [address] [address] [phone] CENTER Prothrombin time/INR (11/30/2018 1:29 PM CDT) Protime 14.3 (H) 11.9 - 14.[address] [facility] INR 1.[address] <=[address]9 [facility] Specimen Blood Narrative Performed At Effective 09/26/2018: PT Reference Range [facility] Change New: 11.9-14.2Previous: 11.7-14.7 RECOMMENDED COUMADIN/WARFARIN INR THERAPY RANGES STANDARD DOSE: 2.0-3.0Includes: PROPHYLAXIS for venous thrombosis, systemic embolization; TREATMENT for venous thrombosis and/or pulmonary embolus. HIGH RISK: Target INR is 2.5-3.5 for patients wiht mechanical heart valves. Performing Organization Address [facility] Phone Number [address] [address] CENTER CBC with platelet count + automated diff (11/30/2018 6:23 AM CDT)Only the most recent of2 resultswithin the time period is included. WBC 5.5 3.5 - 10.5 K/L [facility] RBC 3.90 (L) 4.63 - 6.08 M/L [facility] Hemoglobin 11.4 (L) 13.7 - 17.5 GM/DL [facility] Hematocrit 35.2 (L) 40.1 - 51.0 % [facility] MCV 90.3 79.0 - 92.[address] [facility] MCH 29.2 25.7 - 32.[address] [facility] MCHC 32.4 32.3 - 36.5 GM/DL [facility] RDW 12.9 11.6 - 14.4 % [facility] Platelets 133 (L) 150 - 450 K/CU MM [facility] MPV 11.4 9.4 - 12.[address] [facility] nRBC 0 0 - 0 /[address] [facility] % Neutros 60 % [facility] % Lymphs 29 % [facility] % Monos 8 % [facility] % Eos 2 % [facility] % Baso 1 % [facility] # Neutros 3.27 1.78 - 5.38 K/L [facility] # Lymphs 1.61 1.32 - 3.57 K/L [facility] # Monos 0.41 0.30 - 0.82 K/L [facility] # Eos 0.13 0.04 - 0.54 K/L [facility] # Baso 0.04 0.01 - 0.08 K/L [facility] Immature Granulocytes-Relative 0 0 - 1 % [facility] Specimen Blood Performing Organization Address City/State/Zipcode Phone Number [facility] [address] [place], [place] [phone] CENTER Phosphorus (11/30/2018 6:23 AM CDT) Phosphorus 3.7 2.3 - 4.7 mg/dL [facility] Specimen Blood Performing Organization Address City/State/Zipcode Phone Number [address] [address] CENTER Magnesium (11/30/2018 6:23 AM CDT) Magnesium 1.6 1.6 - 2.6 mg/dL [facility] Specimen Blood Performing Organization Address City/[facility]/Zipcode Phone Number [address] [address] [place] Hepatic function panel (11/30/2018 6:23 AM CDT)Only the most recent of2 resultswithin the time period is included. Protein, Total 5.6 (L) 6.0 - 8.3 gm/dL [facility] Albumin 3.4 (L) 3.5 - 5.0 g/dL [facility] Total Bilirubin 0.9 0.2 - 1.2 mg/dL [facility] Bilirubin, Direct 0.4 0.1 - 0.5 mg/dL [facility] Alkaline Phosphatase 34 (L) 40 - 150 U/L [facility] AST 13 5 - 34 U/L [facility] ALT 17 6 - 55 U/L [facility] Specimen Blood Performing Organization Address City/State/Zipcode Phone Number [address] [address] CENTER Basic metabolic panel (11/30/2018 6:23 AM CDT)Only the most recent of2 resultswithin the time period is included. Sodium 143 136 - 145 meq/L [facility] Potassium 3.5 3.5 - 5.1 meq/L [facility] Chloride 116 (H) 98 - 107 meq/L [facility] CO2 23 22 - 29 meq/L [facility] BUN 13 7 - 21 mg/dL [facility] Creatinine 1.06 0.57 - 1.25 mg/dL [facility] Glucose 85 70 - 105 mg/dL [facility] Calcium 7.8 (L) 8.4 - 10.2 mg/dL [facility] EGFR 82Comment: ESTIMATED GFR IS mL/min/1.73 sq m [facility] NOT ACCURATE CREATININE [facility] CLEARANCE IN PREDICTING GLOMERULAR FILTRATION RATE. ESTIMATED GFR IS NOT APPLICABLE FOR DIALYSIS PATIENTS. Specimen Blood Performing Organization Address City/State/Zipcode Phone Number [facility] [address] [place] [address] [phone] CENTER MR abdomen without IV contrast MRCP (11/29/2018 6:54 PM CDT) Specimen Narrative Performed At FINAL REPORT [facility] TECHNIQUE: MRI of the abdomen and MRCP WITHOUT intravenous contrast. 3-D volume reconstructions were obtained to evaluate the biliary ductal system. INDICATION: Cholelithiasis. COMPARISON: [facility] from 11/29/2018. FINDINGS: ABSENCE OF INTRAVENOUS CONTRAST DECREASES SENSITIVITY FOR DETECTION OF FOCAL LESIONS AND VASCULAR PATHOLOGY. LOWER THORAX: Unremarkable. LIVER: No hepatic signal abnormality. No focal hepatic lesions. BILIARY: Multiple stones in the gallbladder with a mildly thickened gallbladder wall. In addition, there is mildly restricted diffusion in the gallbladder wall. The common bile duct measures 0.6 cm, at the upper limit of normal. However, there is no distal obstruction. SPLEEN: No splenomegaly. PANCREAS: No focal masses or ductal dilatation. ADRENALS: No adrenal nodules. KIDNEYS/URETERS: No hydronephrosis or solid mass lesions. PERITONEUM/RETROPERITONEUM: No free fluid. LYMPH NODES: No lymphadenopathy. There are mildly prominent left periaortic lymph nodes which measure 0.8 cm in short axis dimension. VESSELS: Unremarkable. GI TRACT: No distention or wall thickening. BONES AND SOFT TISSUES: Unremarkable. IMPRESSION: 1.No choledocholithiasis. 2.The MRI findings are consistent with acute cholecystitis. Signed: Daryn Riley MD Report Verified Date/Time:11/30/2018 09:19:41 Reading Location: [id number] Procedure Note Interface, External Ris In - 11/30/2018 9:21 AM CDT FINAL REPORT TECHNIQUE: MRI of the abdomen and MRCP WITHOUT intravenous contrast. 3-D volume reconstructions were obtained to evaluate the biliary ductal system. INDICATION: Cholelithiasis. COMPARISON: [facility] from 11/29/2018. FINDINGS: ABSENCE OF INTRAVENOUS CONTRAST DECREASES SENSITIVITY FOR DETECTION OF FOCAL LESIONS AND VASCULAR PATHOLOGY. LOWER THORAX: Unremarkable. LIVER: No hepatic signal abnormality. No focal hepatic lesions. BILIARY: Multiple stones in the gallbladder with a mildly thickened gallbladder wall. In addition, there is mildly restricted diffusion in the gallbladder wall. The common bile duct measures 0.6 cm, at the upper limit of normal. However, there is no distal obstruction. SPLEEN: No splenomegaly. PANCREAS: No focal masses or ductal dilatation. ADRENALS: No adrenal nodules. KIDNEYS/URETERS: No hydronephrosis or solid mass lesions. PERITONEUM/RETROPERITONEUM: No free fluid. LYMPH NODES: No lymphadenopathy. There are mildly prominent left periaortic lymph nodes which measure 0.8 cm in short axis dimension. VESSELS: Unremarkable. GI TRACT: No distention or wall thickening. BONES AND SOFT TISSUES: Unremarkable. IMPRESSION: 1.No choledocholithiasis. 2.The MRI findings are consistent with acute cholecystitis. Signed: Daryn Riley MD Report Verified Date/Time: 11/30/2018 09:19:41 Reading Location: [id number] Performing Organization Address City/State/Zipcode Phone Number [facility] hepatobiliary ([facility]) scan with ejection fraction (11/29/2018 4:40 PM CDT) Specimen Narrative Performed At FINAL REPORT [employer] PROCEDURE: HEPATOBILIARY SCAN with morphine sulfate CPT CODE:87382 INDICATION:Abdominal pain, vomiting, no history of cholecystitis/cholangitis PROTOCOL:5.4 mCi of Tc-99m mebrofenin was injected intravenously. Images of the upper abdomen were obtained for approximately 120 minutes after tracer injection.Four mg of morphine sulfate was then injected intravenously. Imaging was continued for an additional 60 minutes. A booster dose of 2.0 mCi of Tc-99m mebrofenin was injected intravenously after morphine administration. FINDINGS: Initial tracer uptake into the liver is physiological. Subsequent tracer clearance from the liver proceeds normally. There is good visualization of the extrahepatic biliary duct. Tracer appears appropriately in the small bowel. The gallbladder is not seen after morphine administration. IMPRESSION: The gallbladder is not visualized during this study despite administration of morphine. The exam is consistent with acute cholecystitis. Signed: Cindi Webber MD Report Verified Date/Time:11/29/2018 17:13:43 Reading Location: [address] [email or web address] Reading Room Procedure Note Interface, External Ris In - 11/29/2018 5:16 PM CDT FINAL REPORT PROCEDURE: HEPATOBILIARY SCAN with morphine sulfate CPT CODE: [id number] INDICATION: Abdominal pain, vomiting, no history of cholecystitis/cholangitis PROTOCOL: 5.4 mCi of Tc-99m mebrofenin was injected intravenously. Images of the upper abdomen were obtained for approximately 120 minutes after tracer injection. Four mg of morphine sulfate was then injected intravenously. Imaging was continued for an additional 60 minutes. A booster dose of 2.0 mCi of Tc-99m mebrofenin was injected intravenously after morphine administration. FINDINGS: Initial tracer uptake into the liver is physiological. Subsequent tracer clearance from the liver proceeds normally. There is good visualization of the extrahepatic biliary duct. Tracer appears appropriately in the small bowel. The gallbladder is not seen after morphine administration. IMPRESSION: The gallbladder is not visualized during this study despite administration of morphine. The exam is consistent with acute cholecystitis. Signed: Cindi Webber MD Report Verified Date/Time: 11/29/2018 17:13:43 Reading Location: [address] [email or web address] Reading Room Performing Organization Address City/State/Zipcode Phone Number [facility] Blood Culture Panel([employer]) (11/29/2018 10:27 AM CDT) LISTERIA MONOCYTOGENES Not detected Not detected [facility] STAPHYLOCOCCUS Not detected Not detected [facility] STAPHYLOCOCCUS AUREUS Not detected Not detected [facility] Streptococcus Not detected Not detected [facility] STREPTOCOCCUS AGALACTIAE (GROUP B) Not detected Not detected [facility] STREPTOCOCCUS PNEUMONIAE Not detected Not detected [facility] Streptococcus pyogenes (Group A) Not detected Not detected [facility] ACINETOBACTER BAUMANNII Not detected Not detected [facility] HAEMOPHILUS INFLUENZAE Not detected Not detected [facility] NEISSERIA MENINGITIDIS Not detected Not detected [facility] ENTEROBACTERIACEAE Not detected Not detected [facility] ENTEROBACTER CLOACOE COMPLEX Not detected Not detected [facility] KLEBSIELLA OXYTOCA Not detected Not detected [facility] KLEBSIELLA PNEUMONIAE Not detected Not detected [facility] PROTEUS Not detected Not detected [facility] SERRATIA MARCESCENS Not detected Not detected [facility] NASREEN ALBICANS Not detected Not detected [facility] NASREEN GLABRATA Not detected Not detected [facility] NASREEN KRUSEI Not detected Not detected [facility] NASREEN PARAPSILOSIS Not detected Not detected [facility] NASREEN TROPICALIS Not detected Not detected [facility] ESCHERICHIA COLI Not detected Not detected [facility] METHICILLIN-RESISTANCE GENE Not detected [facility] VANCOMYCIN-RESISTANCE GENE Not detected [facility] CARBAPENEM-RESISTANCE GENE Not detected [facility] ENTEROCOCCUS Not detected Not detected [facility] PSEUDOMONAS AERUGINOSA Not detected Not detected [facility] Specimen Blood Narrative Performed At Other bacteria and resistance markers not [facility] targeted by this PCR panel cannot be excluded; therefore clinical correlation and follow up of serology, culture results, and other molecular studies is required. The results are not intended to be used as the sole means for clinical diagnosis or patient management decisions. This sample was tested at the [facility] Molecular Diagnostics Laboratory using the [employer] Blood Culture ID Panel. It is FDA cleared and has been verified and approved by the [facility] Molecular Diagnostics [facility] for clinical use. This laboratory is CLIA-certified and [employer] (CAP)-accredited to perform high complexity testing. Performing Organization Address City/State/Zipcode Phone Number [address] [address] CENTER after 12/02/2017 Advance Directives For more information, please contact:[address] [phone] Code Status Date Activated Date Inactivated Comments Full Code 11/29/2018 9:39 AM 11/30/2018 10:13 PM This code status was determined by: Patient
--- OUTSIDE RECORDS SUMMARY | 2018-12-03 00:42 | XMS REPORT ---
:1990 [facility] [address] [place] [place] [address] Care Team Providers Name Role Phone KENAN MARRERO Unavailable Unavailable Payers Payer Name Policy Type Policy Number Effective Date Expiration Date Problems This patient has no known problems. Allergies, Adverse Reactions, Alerts Allergy Allergy Status Severity Reaction(s) Onset Inactive Treating Comments Name Type Date Date Clinician No Known DA Active U 2016-03 Allergies 11 00:00:0 0 Medications This patient has no known medications. Results Test Description Test Time Test Comments Text Results Atomic Results Result Comments BLOOD CULTURE IDENTIFICATION PANEL 2018-12-02 11:59:00 Test Item Value Reference Range Comments LISTERIA MONOCYTOGENES (test ksyy=9461969) Not detected Not detected STAPHYLOCOCCUS (test dauj=2888493) Not detected Not detected STAPHYLOCOCCUS AUREUS (test vdbe=2479383) Not detected Not detected STREPTOCOCCUS (test dnqv=2143563) Not detected Not detected STREPTOCOCCUS AGALACTIAE (GROUP B) (test sunn=1023465) Not detected Not detected STREPTOCOCCUS PNEUMONIAE (test lplu=4490997) Not detected Not detected STREPTOCOCCUS PYOGENES (GROUP A) (test hxfr=2428993) Not detected Not detected ACINETOBACTER BAUMANNII (test pehy=5863857) Not detected Not detected HAEMOPHILUS INFLUENZAE (test bdpz=1030627) Not detected Not detected NEISSERIA MENINGITIDIS (test fbhh=0180745) Not detected Not detected ENTEROBACTERIACEAE (test xajm=6811991) Not detected Not detected ENTEROBACTER CLOACOE COMPLEX (test cpxg=5837562) Not detected Not detected KLEBSIELLA OXYTOCA (test lcxt=6510458) Not detected Not detected KLEBSIELLA PNEUMONIAE (test odgs=4294) Not detected Not detected PROTEUS (test gbki=9946984) Not detected Not detected SERRATIA MARCESCENS (test dryl=3010274) Not detected Not detected NASREEN ALBICANS (test klrb=2816381) Not detected Not detected NASREEN GLABRATA (test iahk=7835495) Not detected Not detected NASREEN KRUSEI (test wjeq=7987371) Not detected Not detected NASREEN PARAPSILOSIS (test rxit=2512621) Not detected Not detected NASREEN TROPICALIS (test kalp=7264947) Not detected Not detected ESCHERICHIA COLI (test rkpz=0403522) Not detected Not detected METHICILLIN-RESISTANCE GENE (test wnba=0670494) Not detected VANCOMYCIN-RESISTANCE GENE (test dlrs=5927902) Not detected CARBAPENEM-RESISTANCE GENE (test pfdp=3838116) Not detected ENTEROCOCCUS-BEAKER (test xblz=5626951) Not detected Not detected PSEUDOMONAS AERUGINOSA-BEAKER (test shgx=4196903) Not detected Not detected Other bacteria and resistance markers not targeted by this PCR panel cannot be excluded; therefore clinical correlation and follow up of serology, culture results, and other molecular studies is required. The results are not intended to be used as the sole means for clinical diagnosis or patient management decisions. This sample was tested at the [facility] using the Know[employer] Blood Culture ID Panel. It is FDA cleared and has been verified and approved by the [facility] for clinical use. This laboratory is CLIA-certified and College ofAmerican Pathologists (CAP)-accredited to perform high complexity testing.PROTHROMBIN TIME/[id number] 13:47:00 Test Item Value Reference Range Comments PROTIME (BEAKER) (test dfbv=449) 14.3 seconds 11.9-14.2 INR (BEAKER) (test ftiq=669) 1.2 <=5.9 Effective 09/26/2018: PT Reference Range ChangeNew: 11.9-14.2 Previous: 11.7- 14.7RECOMMENDED COUMADIN/WARFARIN INR THERAPY RANGESSTANDARD DOSE: 2.0-3.0 Includes: PROPHYLAXIS for venous thrombosis, systemic embolization; TREATMENT for venous thrombosis and/or pulmonary embolus.HIGH RISK: Target INR is2.5-3.5 for patients wiht mechanical heart valves.[id number] 13:47:00 Test Item Value Reference Range Comments PARTIAL THROMBOPLASTIN TIME (BEAKER) (test 29.1 seconds 22.5-36.0 yeav=838) MR, ABDOMEN, [id number] 09:19:00FINAL REPORT TECHNIQUE: MRI of the abdomen and MRCP WITHOUT intravenous contrast. 3-D volume reconstructions were obtained to evaluate the biliary ductal system. INDICATION : Cholelithiasis. COMPARISON: HIDA from 11/29/2018. FINDINGS: ABSENCE [...] upper limit of normal. However, there is nodistal obstruction.SPLEEN: No splenomegaly.PANCREAS: No focal masses or ductal dilatation. ADRENALS:No adrenal nodules.KIDNEYS/URETERS: No hydronephrosis or solid mass lesions. PERITONEUM/RETROPERITONEUM: No free fluid.LYMPH NODES: No lymphadenopathy. There are mildly prominent left periaortic lymph nodes which measure 0.8 cm in short axis dimension.VESSELS: Unremarkable. GI TRACT: No distention or wall thickening. BONES AND SOFT TISSUES: Unremarkable. IMPRESSION : 1.No choledocholithiasis. 2.The MRI findings are consistent with acute cholecystitis. Signed: Daryn Riley [facility] Verified Date/Time:11/30/2018 09:19: 41 Reading Location: [address] BASIC METABOLIC [id number] 07:55:00 Test Item Value Reference Range Comments SODIUM (BEAKER) (test 143 meq/L 136-145 pblx=623) POTASSIUM (BEAKER) (test 3.5 meq/L 3.5-5.1 tzap=146) CHLORIDE (BEAKER) (test 116 meq/L 98-107 xvle=936) CO2 (BEAKER) (test 23 meq/L 22-29 mhwe=048) BLOOD UREA NITROGEN 13 mg/dL 7-21 (BEAKER) (test hrqi=496) CREATININE (BEAKER) (test 1.06 mg/dL 0.57-1.25 kzqn=379) GLUCOSE RANDOM (BEAKER) 85 mg/dL 70-105 (test zodw=052) CALCIUM (BEAKER) (test 7.8 mg/dL 8.4-10.2 bwmc=717) EGFR (BEAKER) (test 82 mL/min/1.73 sq m ESTIMATED GFR IS NOT rlnr=7191) ACCURATE CREATININE CLEARANCE IN PREDICTING GLOMERULAR FILTRATION RATE. ESTIMATED GFR IS NOT APPLICABLE FOR DIALYSIS PATIENTS. [id number] 07:49:00 Test Item Value Reference Range Comments PHOSPHORUS (BEAKER) (test vksn=421) 3.7 mg/dL 2.3-4.7 [id number] 07:49:00 Test Item Value Reference Range Comments MAGNESIUM (BEAKER) (test iaik=133) 1.6 mg/dL 1.6-2.6 HEPATIC FUNCTION [id number] 07:49:00 Test Item Value Reference Range Comments TOTAL PROTEIN (BEAKER) (test mgjh=087) 5.6 gm/dL 6.0-8.3 ALBUMIN (BEAKER) (test zbsf=1113) 3.4 g/dL 3.5-5.0 BILIRUBIN TOTAL (BEAKER) (test kake=632) 0.9 mg/dL 0.2-1.2 BILIRUBIN DIRECT (BEAKER) (test pcyw=344) 0.4 mg/dL 0.1-0.5 ALKALINE PHOSPHATASE (BEAKER) (test xtds=128) 34 U/L 40-150 AST (SGOT) (BEAKER) (test pcsq=443) 13 U/L 5-34 ALT (SGPT) (BEAKER) (test kqki=864) 17 U/L 6-55 CBC W/PLT COUNT & AUTO [id number] 07:23:00 Test Item Value Reference Range Comments WHITE BLOOD CELL COUNT (BEAKER) (test cqry=173) 5.5 K/ L 3.5-10.5 RED BLOOD CELL COUNT (BEAKER) (test parz=354) 3.90 M/ L 4.63-6.08 HEMOGLOBIN (BEAKER) (test blhk=524) 11.4 GM/DL 13.7-17.5 HEMATOCRIT (BEAKER) (test ahvw=997) 35.2 % 40.1-51.0 MEAN CORPUSCULAR VOLUME (BEAKER) (test rqif=344) 90.3 fL 79.0-92.2 MEAN CORPUSCULAR HEMOGLOBIN (BEAKER) (test 29.2 pg 25.7-32.2 jdlr=067) MEAN CORPUSCULAR HEMOGLOBIN CONC (BEAKER) (test 32.4 GM/DL 32.3-36.5 uemc=581) RED CELL DISTRIBUTION WIDTH (BEAKER) (test 12.9 % 11.6-14.4 wzch=848) PLATELET COUNT (BEAKER) (test izme=820) 133 K/CU MM 150-450 MEAN PLATELET VOLUME (BEAKER) (test trwf=126) 11.4 fL 9.4-12.4 NUCLEATED RED BLOOD CELLS (BEAKER) (test 0 /100 WBC 0-0 keoi=988) NEUTROPHILS RELATIVE PERCENT (BEAKER) (test 60 % vapq=128) LYMPHOCYTES RELATIVE PERCENT (BEAKER) (test 29 % imee=664) MONOCYTES RELATIVE PERCENT (BEAKER) (test 8 % asac=520) EOSINOPHILS RELATIVE PERCENT (BEAKER) (test 2 % amna=402) BASOPHILS RELATIVE PERCENT (BEAKER) (test 1 % crtt=722) NEUTROPHILS ABSOLUTE COUNT (BEAKER) (test 3.27 K/ L 1.78-5.38 lmql=096) LYMPHOCYTES ABSOLUTE COUNT (BEAKER) (test 1.61 K/ L 1.32-3.57 oztr=066) MONOCYTES ABSOLUTE COUNT (BEAKER) (test 0.41 K/ L 0.30-0.82 umky=667) EOSINOPHILS ABSOLUTE COUNT (BEAKER) (test 0.13 K/ L 0.04-0.54 frln=619) BASOPHILS ABSOLUTE COUNT (BEAKER) (test 0.04 K/ L 0.01-0.08 zgha=594) IMMATURE GRANULOCYTES-RELATIVE PERCENT (BEAKER) 0 % 0-1 (test dxzg=6192) HEPATOBILIARY IMAGING W/ [id number] 17:13:00FINAL REPORT PROCEDURE: HEPATOBILIARY SCAN with morphine sulfate CPT CODE: 37810 INDICATION: Abdominal pain, vomiting, no history of cholecystitis /cholangitis PROTOCOL: 5.4 mCi of Tc-99m mebrofenin was [...] exam is consistent with acute cholecystitis. Signed: Joselito Webber MDReport Verified Date/Time: 11/29/2018 17 :13:43 Reading Location: [address] [facility] [id number] 11:20:00 Test Item Value Reference Range Comments SODIUM (BEAKER) (test 140 meq/L 136-145 etvg=082) POTASSIUM (BEAKER) (test 4.4 meq/L 3.5-5.1 Specimen slightly wtml=946) hemolyzed CHLORIDE (BEAKER) (test 110 meq/L 98-107 bcwy=030) CO2 (BEAKER) (test 24 meq/L 22-29 povc=741) BLOOD UREA NITROGEN 19 mg/dL 7-21 (BEAKER) (test yfaj=010) CREATININE (BEAKER) (test 1.07 mg/dL 0.57-1.25 Specimen slightly frri=780) hemolyzed GLUCOSE RANDOM (BEAKER) 94 mg/dL 70-105 (test gjbk=475) CALCIUM (BEAKER) (test 9.2 mg/dL 8.4-10.2 mrqp=244) EGFR (BEAKER) (test 81 mL/min/1.73 sq m ESTIMATED GFR IS NOT wscs=1092) ACCURATE CREATININE CLEARANCE IN PREDICTING GLOMERULAR FILTRATION RATE. ESTIMATED GFR IS NOT APPLICABLE FOR DIALYSIS PATIENTS. HEPATIC FUNCTION [id number] 11:20:00 Test Item Value Reference Range Comments TOTAL PROTEIN (BEAKER) (test 7.5 gm/dL 6.0-8.3 Specimen slightly hemolyzed iazq=883) ALBUMIN (BEAKER) (test 4.4 g/dL 3.5-5.0 Specimen slightly hemolyzed mrfu=2570) BILIRUBIN TOTAL (BEAKER) (test 1.0 mg/dL 0.2-1.2 Specimen slightly hemolyzed mtxp=654) BILIRUBIN DIRECT (BEAKER) (test 0.3 mg/dL 0.1-0.5 Specimen slightly hemolyzed wipd=805) ALKALINE PHOSPHATASE (BEAKER) 44 U/L 40-150 (test cmke=296) AST (SGOT) (BEAKER) (test 20 U/L 5-34 Specimen slightly hemolyzed ekey=818) ALT (SGPT) (BEAKER) (test 25 U/L 6-55 Specimen slightly hemolyzed endh=628) CBC W/PLT COUNT & AUTO [id number] 10:51:00 Test Item Value Reference Range Comments WHITE BLOOD CELL COUNT (BEAKER) (test knzr=802) 9.1 K/ L 3.5-10.5 RED BLOOD CELL COUNT (BEAKER) (test fuvx=412) 5.06 M/ L 4.63-6.08 HEMOGLOBIN (BEAKER) (test lajn=598) 14.8 GM/DL 13.7-17.5 HEMATOCRIT (BEAKER) (test gpuc=433) 46.1 % 40.1-51.0 MEAN CORPUSCULAR VOLUME (BEAKER) (test cycb=417) 91.1 fL 79.0-92.2 MEAN CORPUSCULAR HEMOGLOBIN (BEAKER) (test 29.2 pg 25.7-32.2 wzuv=435) MEAN CORPUSCULAR HEMOGLOBIN CONC (BEAKER) (test 32.1 GM/DL 32.3-36.5 nifr=011) RED CELL DISTRIBUTION WIDTH (BEAKER) (test 12.8 % 11.6-14.4 fvoa=367) PLATELET COUNT (BEAKER) (test bxpn=069) 161 K/CU MM 150-450 MEAN PLATELET VOLUME (BEAKER) (test ftyh=388) 11.4 fL 9.4-12.4 NUCLEATED RED BLOOD CELLS (BEAKER) (test 0 /100 WBC 0-0 cclw=076) NEUTROPHILS RELATIVE PERCENT (BEAKER) (test 71 % ewqs=380) LYMPHOCYTES RELATIVE PERCENT (BEAKER) (test 21 % qktf=684) MONOCYTES RELATIVE PERCENT (BEAKER) (test 6 % irot=072) EOSINOPHILS RELATIVE PERCENT (BEAKER) (test 1 % cpjt=334) BASOPHILS RELATIVE PERCENT (BEAKER) (test 0 % xadn=236) NEUTROPHILS ABSOLUTE COUNT (BEAKER) (test 6.47 K/ L 1.78-5.38 lxqr=778) LYMPHOCYTES ABSOLUTE COUNT (BEAKER) (test 1.95 K/ L 1.32-3.57 ckaj=180) MONOCYTES ABSOLUTE COUNT (BEAKER) (test 0.55 K/ L 0.30-0.82 idis=343) EOSINOPHILS ABSOLUTE COUNT (BEAKER) (test 0.08 K/ L 0.04-0.54 vuks=671) BASOPHILS ABSOLUTE COUNT (BEAKER) (test 0.04 K/ L 0.01-0.08 cuju=987) IMMATURE GRANULOCYTES-RELATIVE PERCENT (BEAKER) 0 % 0-1 (test ftbr=8920) - US ABDOMEN [id number] 09:06:00 FAX: Rafat Giordano MD [place]: St: REG Name: YARY KRUSE [facility] : 1990 Age/S: 28/M [address] [facility] Unit#: [id number] Loc: [place], [place] Phys: [place] [id number] Acct: [id number] Dis Date: Status: REG ER PHONE #: [phone] Exam Date: 10/07/2018 0854 FAX #: [phone] Reason: RUQ pain EXAMS: CPT CODE : [id number] US ABDOMEN LTD 38318 EXAMINATION : - US ABDOMEN LTD. LOCATION: R16. HISTORY: RUQ pain. COMPARISON: CT abdomen and pelvis 10/07/2018. TECHNIQUE: Multiple grayscale, pulse Doppler and color Doppler [...] Gallbladder wall prominence, presumably due to underdistention. at 0906 Reported and signed by: Jonas Toribio M.D. CC: Rafat Giordano MD Technologist: LETTY Price Date/Time/By: 10/07/2018 (0906) : By: [email or web address] PAGE 1 Signed Report FAX: aRfat Giordano MD [place]: St: REG Name: AIXAROB [facility] : 1990 Age/S: 28/M [address] [facility] Unit #: [id number] Loc: [place], [place]: [place] [id number] Acct: [id number] Dis Date: Status: REG ER PHONE #: [phone] Exam Date: 2018 0854 FAX #: [phone] Reason: RUQ pain EXAMS : CPT CODE: [id number] US ABDOMEN LTD 17615 <Continued> Orig Print D/T: S: 10/07/2018 (0909) PAGE 2 Signed Report- CT ABD PELVIS W/ [id number] 08:51:00 FAX: Rafat Giordano MD [place] : St: REG Name: YARY KRUSE [facility] : 1990 Age/S: 28/M [address] [employer] Unit: [id number] Loc: [place], [place]: [place] [address] Acct: [id number] Dis Date: Status: REG ER PHONE #: [phone] Exam Date: 10/07/2018 0840 FAX #: [phone] Reason: diffuse abd tenderness EXAMS: CPT CODE: [id number] CT ABD PELVIS W/CONT 38434 Contrast-enhanced CT of the abdomen and pelvis Location R 16 CLINICAL INDICATION : Abdominal pain COMPARISON: 05/02/[address] is obtained from lung bases to inferior pubic rami after intravenous contrast with axial, coronal and sagittal reconstructions provided. One or more the following dose reduction techniques were used: Automated exposure control, adjustment of mA and/or kV accordingto patient size, and use of iterative reconstruction [...] MD Technologist: DIAMOND BRISCOE Trnscrd Dt/Tm: 10/07/2018 (0896) Gloria Orig Print D/T: S: 10/07/2018 (0654 PAGE 1 Signed ReportDRUGS OF ABUSE SCREEN [id number] 08:03:00 Test Item Value Reference Range Comments URN COCAINE (test NEGATIVE NEGATIVE Cocaine cut-off concentration: code=COCAURN) 300 ng/mL URN CANNABINOIDS (test NEGATIVE NEGATIVE Cannabinoids cut-off code=CANNABURN) concentration: 50 ng/mL URN AMPHETAMINE (test NEGATIVE NEGATIVE Amphetamine cut-off code=AMPHETURN) concentration: 1000 ng/mL URN BARBITURATE (test NEGATIVE NEGATIVE Barbiturate cut-off code=BARBITURN) concentration: 200 ng/mL URN BENZODIAZEPINE (test NEGATIVE NEGATIVE Benzodiazepine cut-off code=BENZOURN) concentration: 200 ng/mL URN OPIATES (test NEGATIVE NEGATIVE Opiates cut-off concentration: code=OPIATURN) 200 ng/mL URN PHENCYCLIDINE (PCP) (test NEGATIVE NEGATIVE Phencyclidine(PCP) cut-off code=PHENCURN) concentration: 25 ng/ml URN METHADONE (test NEGATIVE NEGATIVE Methadone cut-off code=METHAURN) concentration: 300 ng/mL Specimen comments: Clean CatchBASIC METABOLIC [id number] 08:03:00 Test Item Value Reference Range Comments [...] code=CA) 8.2 mg/dl 8.0-10.5 HEPATIC FUNCTION PANEL [id number] 08:03:00 Test Item Value Reference Range Comments TOTAL PROTEIN (test code=PROT) 7.7 gm/dL 6.4-8.2 ALBUMIN (test code=ALB) 4.0 gm/dl 3.2-4.7 BILIRUBIN TOTAL (test code=BILT) 0.5 mg/dl 0.0-1.0 BILIRUBIN DIRECT (test code=BILD) 0.1 mg/dl 0.0-0.3 SGOT/AST (test code=AST) 13 Units/L 15.0-37.0 SGPT/ALT (test code=ALT) 29 Units/L 12.0-78.0 ALKALINE PHOSPHATASE TOTAL (test code=ALKP) 48 Units/L 50.0-136.0 [id number] 08:03:00 Test Item Value Reference Range Comments LIPASE (test code=LIP) 283 Units/L 65.0-230.0 URINALYSIS [id number] 07:56:00 Test Item Value Reference Range Comments [...] FEW NONE Specimen comments: Clean CatchBASIC METABOLIC [id number] 07:55:00 Test Item Value Reference Range Comments [...] (test code=CA) mg/dl 8.0-10.5 HEPATIC FUNCTION PANEL [id number] 07:55:00 Test Item Value Reference Range Comments TOTAL PROTEIN (test code=PROT) gm/dL 6.4-8.2 ALBUMIN (test code=ALB) gm/dl 3.2-4.7 BILIRUBIN TOTAL (test code=BILT) mg/dl 0.0-1.0 BILIRUBIN DIRECT (test code=BILD) mg/dl 0.0-0.3 SGOT/AST (test code=AST) Units/L 15.0-37.0 SGPT/ALT (test code=ALT) Units/L 12.0-78.0 ALKALINE PHOSPHATASE TOTAL (test code=ALKP) Units/L 50.0-136.0 [id number] 07:55:00 Test Item Value Reference Range Comments LIPASE (test code=LIP) Units/L 65.0-230.0 CBC W/AUTO [id number] 07:53:00 Test Item Value Reference Range Comments [...] # (test code=BA#) 0.0 K/mm3 0.0-0.2 URINALYSIS [id number] 07:51:00 Test Item Value Reference Range Comments [...]
[2018-12-03] MEDS ORDERED: MEPERIDINE HCL 50 MG/ML AMP ONE (01:22)
[2018-12-03] MEDS ORDERED: ONDANSETRON 4 MG/2 ML VIAL ONE ×2 (01:22→14:44)
[2018-12-03 02:15] LABS: Absolute Lymphocytes (CBC) 2.1 K/uL (0.7-4.9); Basophils % 0.4 % (0-1.3); Hematocrit 43.3 % (39.6-49.0); Lymphocytes % 24.5 % (15.3-44.8); MPV 10.3 fL (7.6-11.3); RBC Red Blood Cell Count 4.89 M/uL (4.33-5.43)
[2018-12-03 02:27] LABS: Albumin 3.9 g/dL (3.4-5.0); Bilirubin Direct 0.1 mg/dL (0-0.2); Bilirubin Total 0.3 mg/dL (0.2-1.0); Potassium 3.8 mmol/L (3.5-5.1); Protein, Total 7.4 g/dL (6.4-8.2)
[2018-12-03] MEDS ORDERED: NA CHLORIDE 0.9% 100 ML IV ONE (03:02)
[2018-12-03] MEDS ORDERED: METRONIDAZOLE 500mg IVPB 500 MG/100 ML BAG IV ONE (03:02)
[2018-12-03] MEDS ORDERED: CEFOXITIN SODIUM 1 GM/VIAL ONE (03:02)
--- NOTE | 2018-12-03 03:06 | EDPHYS ---
Physician Documentation [facility] Name: Fawad Olivarez Age: 28 yrs Sex: Male : 1990 Arrival Date: 12/03/2018 Time: 00:40 Bed 13 Private MD: ED Physician Elian Foley HPI: 12/03 01:25 This 28 yrs old Male presents to ER via Ambulatory with complaints of Abdominal Pain. jr8 01:25 The patient presents with abdominal pain in the right upper quadrant. Onset: The jr8 symptoms/episode began/occurred acutely, today. The symptoms do not radiate. Associated signs and symptoms: Pertinent positives: nausea. The symptoms are described as stabbing. Modifying factors: The symptoms are alleviated by nothing, the symptoms are aggravated by food. Severity of pain: At its worst the pain was moderate in the emergency department the pain is unchanged. The patient has experienced similar episodes in the past, a few times. The patient has been recently seen by a physician:. Patient recently seen in the ED and was diagnosed with acute cholecystitis with possible choledocholithiasis. Was transferred to [facility] where he stated that he had nuclear medicine studies and MRI competed. Was scheduled for surgery but it go late and surgeon's went home for the day. Ended up discharging him home and if it go worse to go back to ED for surgery . Historical: - Allergies: 00:59 No Known Allergies; rr5 - Home Meds: 00:59 topiramate oral oral [Active]; rr5 - PMHx: 00:59 Seizures; gallstones; rr5 - PSHx: 00:59 None; rr5 - Immunization history:: Adult Immunizations up to date. - Social history:: Smoking status: Patient uses tobacco products, 1 stick, Patient uses alcohol, every other day. Patient/guardian denies using street drugs. - Ebola Screening: : Patient negative for fever greater than or equal to 101.5 degrees Fahrenheit, and additional compatible Ebola Virus Disease symptoms Patient denies exposure to infectious person Patient denies travel to an Ebola-affected area in the 21 days before illness onset. ROS: 01:25 Eyes: Negative for injury, pain, redness, and discharge, ENT: Negative for injury, jr8 pain, and discharge, Neck: Negative for injury, pain, and swelling, Cardiovascular: Negative for chest pain, palpitations, and edema, Respiratory: Negative for shortness of breath, cough, wheezing, and pleuritic chest pain, Back: Negative for injury and pain, MS/Extremity: Negative for injury and deformity, Skin: Negative for injury, rash, and discoloration, Neuro: Negative for headache, weakness, numbness, tingling, and seizure. 01:25 Abdomen/GI: Positive for abdominal pain, nausea and vomiting, Negative for diarrhea, constipation, abdominal cramps, abdominal distension, anorexia, dysphagia, hematemesis, black/tarry stool, rectal pain, rectal bleeding, bowel incontinence, flatulence. Exam: 01:25 Eyes: Pupils equal round and reactive to light, extra-ocular motions intact. Lids and jr8 lashes normal. Conjunctiva and sclera are non-icteric and not injected. Cornea within normal limits. Periorbital areas with no swelling, redness, or edema. ENT: Nares patent. No nasal discharge, no septal abnormalities noted. Tympanic membranes are normal and external auditory canals are clear. Oropharynx with no redness, swelling, or masses, exudates, or evidence of obstruction, uvula midline. Mucous membranes moist. Neck: Trachea midline, no thyromegaly or masses palpated, and no cervical lymphadenopathy. Supple, full range of motion without nuchal rigidity, or vertebral point tenderness. No Meningismus. Cardiovascular: Regular rate and rhythm with a normal S1 and S2. No gallops, murmurs, or rubs. Normal PMI, no JVD. No pulse deficits. Respiratory: Lungs have equal breath sounds bilaterally, clear to auscultation and percussion. No rales, rhonchi or wheezes noted. No increased work of breathing, no retractions or nasal flaring. Back: No spinal tenderness. No costovertebral tenderness. Full range of motion. Skin: Warm, dry with normal turgor. Normal color with no rashes, no lesions, and no evidence of cellulitis. MS/ Extremity: Pulses equal, no cyanosis. Neurovascular intact. Full, normal range of motion. Neuro: Awake and alert, GCS 15, oriented to person, place, time, and situation. Cranial nerves II-XII grossly intact. Motor strength 5/5 in all extremities. Sensory grossly intact. Cerebellar exam normal. Normal gait. 01:25 Abdomen/GI: Inspection: abdomen appears normal, Bowel sounds: active, all quadrants, Palpation: soft, in all quadrants, moderate abdominal tenderness, in the epigastric area and right upper quadrant, mass, is not appreciated, rebound tenderness, is not appreciated, voluntary guarding, is elicited in the right upper quadrant, involuntary guarding, is not appreciated, no appreciated organomegaly, Indicators: McBurney's point is not tender, Bains's sign is positive, Rovsing's sign is negative. Vital Signs: 00:55 BP 123 / 67; Pulse 55; Resp 17; Temp 97.5; Pulse Ox 100% ; Weight 111.13 kg; Height 6 rr5 ft. 5 in. (195.58 cm); Pain 10/10; 02:00 BP 110 / 62; Pulse 51; Resp 16; Pulse Ox 100% ; Pain 6/10; rr5 03:00 BP 92 / 55; Pulse 54; Resp 17; Pulse Ox 98% on R/A; Pain 4/10; rr5 03:50 BP 91 / 52; Pulse 52; Resp 16; Pulse Ox 100% on R/A; rr5 04:25 BP 100 / 52; Pulse 54; Resp 18; Pulse Ox 100% on R/A; rr5 00:55 Body Mass Index 29.05 (111.13 kg, 195.58 cm) rr5 MDM: 00:51 Patient medically screened. timothy 02:59 Data reviewed: vital signs, nurses notes, old medical records, lab test result(s). Data 8 interpreted: Pulse oximetry: on room air is 100 %. Interpretation: normal. Counseling: I had a detailed discussion with the patient and/or guardian regarding: the historical points, exam findings, and any diagnostic results supporting the discharge/admit diagnosis, lab results, the need for further work-up and treatment in the hospital. 12/03 01:02 Order name: Basic Metabolic Panel; Complete Time: 02:42 12/03 01:02 Order name: CBC with Diff; Complete Time: 02:24 12/03 01:02 Order name: Creatinine for Radiology; Complete Time: 02:42 12/03 01:02 Order name: Hepatic Function; Complete Time: 02:42 12/03 01:02 Order name: Lipase; Complete Time: 02:42 12/03 03:11 Order name: Basic Metabolic Panel EDMS 08/05 03:11 Order name: Basic Metabolic Panel EDMS 12/03 03:12 Order name: CBC with Automated Diff EDMS 12/03 03:12 Order name: CBC with Automated Diff EDMS 12/03 03:12 Order name: Lipase EDMS 12/03 03:12 Order name: Lipase EDMS 12/03 03:12 Order name: Liver (Hepatic) Function EDMS 12/03 03:12 Order name: Liver (Hepatic) Function EDMS 12/03 01:02 Order name: IV Saline Lock; Complete Time: jr8 12/03 01:02 Order name: Labs collected and sent; Complete Time: jr8 12/03 03:12 Order name: NPO EDMS Administered Medications: 01:25 Drug: Zofran 4 mg Route: IVP; Site: right forearm; rr5 02:25 Follow up: Response: No adverse reaction rr5 01:29 Drug: Demerol 50 mg Route: IVP; Site: right forearm; rr5 02:30 Follow up: Response: No adverse reaction rr5 03:08 Drug: Flagyl 500 mg Volume: 100 ml; Route: IVPB; Rate: 200 ml/hr; Infused Over: 30 rr5 mins; Site: right antecubital; 03:30 Follow up: Response: No adverse reaction; IV Status: Completed infusion; IV Intake: rr5 100ml 03:31 Drug: Mefoxin 1 grams Route: IVPB; Infused Over: 30 mins; Site: right antecubital; rr5 04:29 Follow up: Response: No adverse reaction; IV Status: Completed infusion; IV Intake: [id number] Disposition: 09:26 Co-signature as Attending Physician, Elian Foley MD I agree with the assessment and timothy plan of care. Disposition: 12/03/18 03:05 Hospitalization ordered by Hair Rush for Observation. Preliminary diagnosis are Cholecystitis, Cholelithiasis, Abdominal tenderness. - Bed requested for Telemetry/MedSurg (observation). - Status is Observation. rr5 - Condition is Stable. - Problem is new. - Symptoms have improved. UTI on Admission? No Signatures: Dispatcher [employer] EDIA Johanny Junior RN RN mw Anderson, Corey, MD MD cha Roszak, Josh, PA PA jr8 Box, Thiago, RN RN rr5 Corrections: (The following items were deleted from the chart) 03:24 03:05 Hospitalization Ordered by Hair Rush MD for Observation. Preliminary mw diagnosis is Cholecystitis; Cholelithiasis; Abdominal tenderness. Bed requested for Telemetry/MedSurg (observation). Status is Observation. Condition is Stable. Problem is new. Symptoms have improved. UTI on Admission? No. [facility] 04:39 03:24 12/03/2018 03:05 Hospitalization Ordered by Hair Rush MD for Observation. rr5 Preliminary diagnosis is Cholecystitis; Cholelithiasis; Abdominal tenderness. Bed requested for Telemetry/MedSurg (observation). Status is Observation. Condition is Stable. Problem is new. Symptoms have improved. UTI on Admission? No. mw
--- NOTE | 2018-12-03 03:06 | ER ---
Nurse's Notes [facility] Name: Fawad Olivarez Age: 28 yrs Sex: Male : 1990 Arrival Date: 12/03/2018 Time: 00:40 Bed 13 Private MD: Diagnosis: Cholecystitis;Cholelithiasis;Abdominal tenderness Presentation: 12/03 00:50 Presenting complaint: Patient states: having severe abdominal pain right upper side. i rr5 was diagnosed here last with gallstones was transferred to [facility] then discharge last Monday they said to call on Monday to schedule for operation and go back to hospital if having abdominal pain. 00:50 Transition of care: patient was not received from another setting of care. Onset of rr5 symptoms was December 03, 2018. Risk Assessment: Do you want to hurt yourself or someone else? Patient reports no desire to harm self or others. Initial Sepsis Screen: Does the patient meet any 2 criteria? No. Patient's initial sepsis screen is negative. Does the patient have a suspected source of infection? No. Patient's initial sepsis screen is negative. Care prior to arrival: None. 00:50 Method Of Arrival: Ambulatory rr5 00:50 Acuity: LASHAY 3 rr5 Historical: - Allergies: 00:59 No Known Allergies; rr5 - Home Meds: 00:59 topiramate oral oral [Active]; rr5 - PMHx: 00:59 Seizures; gallstones; rr5 - PSHx: 00:59 None; rr5 - Immunization history:: Adult Immunizations up to date. - Social history:: Smoking status: Patient uses tobacco products, 1 stick, Patient uses alcohol, every other day. Patient/guardian denies using street drugs. - Ebola Screening: : Patient negative for fever greater than or equal to 101.5 degrees Fahrenheit, and additional compatible Ebola Virus Disease symptoms Patient denies exposure to infectious person Patient denies travel to an Ebola-affected area in the 21 days before illness onset. Screenin:01 Abuse screen: Denies threats or abuse. Denies injuries from another. Nutritional rr5 screening: No deficits noted. Tuberculosis screening: No symptoms or risk factors identified. 01:05 Fall Risk IV access (20 points). Total Pinzon Fall Scale indicates No Risk (0-24 pts). rr5 Assessment: 00:55 General: Appears in no apparent distress. uncomfortable, Behavior is calm, cooperative, rr5 appropriate for age. 00:55 Pain: Complains of pain in right upper quadrant Pain does not radiate. Pain currently rr5 is 10 out of 10 on a pain scale. Quality of pain is described as aching, Pain began gradually, Is intermittent. Neuro: Level of Consciousness is awake, alert, obeys commands, Oriented to person, place, time, situation, Appropriate for age. Cardiovascular: Capillary refill < 3 seconds Patient's skin is warm and dry. Respiratory: Airway is patent Respiratory effort is even, unlabored, Respiratory pattern is regular, symmetrical. GI: Abdomen is round Bowel sounds present X 4 quads. Abdomen is tender to palpation in right upper quadrant Guarding noted Reports upper abdominal pain. : No signs and/or symptoms were reported regarding the genitourinary system. EENT: No signs and/or symptoms were reported regarding the EENT system. Derm: Skin is pink, warm \T\ dry. Skin temperature is warm. Musculoskeletal: Circulation, motion, and sensation intact. Capillary refill < 3 seconds. 01:41 Reassessment: Patient appears in no apparent distress at this time. Patient is alert, rr5 oriented x 3, equal unlabored respirations, skin warm/dry/pink. Patient states feeling better. Patient states symptoms have improved. 03:00 Reassessment: Patient appears in no apparent distress at this time. Patient is alert, rr5 oriented x 3, equal unlabored respirations, skin warm/dry/pink. reassess by the ED provider advised for admission patient agreed for the plan of care. Patient states feeling better. Patient states symptoms have improved. 03:58 Reassessment: Patient appears in no apparent distress at this time. Patient is alert, rr5 oriented x 3, equal unlabored respirations, skin warm/dry/pink. awaiting for [facility] order for admission. eyes closed breathing spontaneously at room air. 04:25 Reassessment: Patient appears in no apparent distress at this time. Patient is alert, rr5 oriented x 3, equal unlabored respirations, skin warm/dry/pink. instructed on NPO.BP 100/50mmHg latest BP IV flui d5 0.45% NS started regulated at 125 ml/hr. endorsed to 2nd floor. no complaints made by the patient. Vital Signs: 00:55 BP 123 / 67; Pulse 55; Resp 17; Temp 97.5; Pulse Ox 100% ; Weight 111.13 kg; Height 6 rr5 ft. 5 in. (195.58 cm); Pain 10/10; 02:00 BP 110 / 62; Pulse 51; Resp 16; Pulse Ox 100% ; Pain 6/10; rr5 03:00 BP 92 / 55; Pulse 54; Resp 17; Pulse Ox 98% on R/A; Pain 4/10; rr5 03:50 BP 91 / 52; Pulse 52; Resp 16; Pulse Ox 100% on R/A; rr5 04:25 BP 100 / 52; Pulse 54; Resp 18; Pulse Ox 100% on R/A; rr5 00:55 Body Mass Index 29.05 (111.13 kg, 195.58 cm) rr5 ED Course: 00:40 Patient arrived in ED. es 00:47 Thiago Box RN is Primary Nurse. rr5 00:49 Jared Bonner PA is PHCP. jr8 00:49 Elian Foley MD is Attending Physician. jr8 00:57 Triage completed. rr5 01:00 Arm band placed on. rr5 01:00 Patient has correct armband on for positive identification. Placed in gown. Bed in low rr5 position. Call light in reach. Side rails up X2. 01:00 Pulse ox on. NIBP on. rr5 01:25 Inserted saline lock: 20 gauge in right forearm, using aseptic technique. Blood oe collected. 03:03 Hair Rush MD is Hospitalizing Provider. [facility] 03:58 No provider procedures requiring assistance completed. Patient admitted, IV remains in rr5 place. intact, No redness/swelling at site. Administered Medications: 01:25 Drug: Zofran 4 mg Route: IVP; Site: right forearm; rr5 02:25 Follow up: Response: No adverse reaction rr5 01:29 Drug: Demerol 50 mg Route: IVP; Site: right forearm; rr5 02:30 Follow up: Response: No adverse reaction rr5 03:08 Drug: Flagyl 500 mg Volume: 100 ml; Route: IVPB; Rate: 200 ml/hr; Infused Over: 30 rr5 mins; Site: right antecubital; 03:30 Follow up: Response: No adverse reaction; IV Status: Completed infusion; IV Intake: rr5 100ml 03:31 Drug: Mefoxin 1 grams Route: IVPB; Infused Over: 30 mins; Site: right antecubital; rr5 04:29 Follow up: Response: No adverse reaction; IV Status: Completed infusion; IV Intake: [id number] Intake: 03:30 IV: 100ml; Total: 100ml. rr5 04:29 IV: 50ml; Total: 150ml. rr5 Outcome: 03:05 Decision to Hospitalize by Provider. timothy 04:25 Admitted to Med/surg accompanied by nurse, via stretcher, room 211, Report called to rr5 paulina 04:25 Condition: stable 04:25 Instructed on the need for admit. 04:39 Patient left the ED. rr5 Signatures: Elian Foley MD MD cha Salyer, Jared Kuo PA PA jr8 Allen Altman Raymond, RN RN rr5 Corrections: (The following items were deleted from the chart) 04:55 02:00 BP 90 / 62; Pulse 51bpm; Resp 16bpm; Pulse Ox 100%; Pain 6/10; rr5 rr5
[2018-12-03] MEDS ORDERED: ONDANSETRON 4 MG/2 ML VIAL IV PRN (03:08)
[2018-12-03] MEDS ORDERED: ACETAMINOPHEN 500 MG TAB PO PRN (03:08)
[2018-12-03] MEDS ORDERED: D5 0.45 NS 1,000 ML IV ONE (04:21)
[2018-12-03] MEDS: D5 0.45 NS 1,000 ML IV SCH ×2 (04:25→12:37)
[2018-12-03] MEDS ORDERED: PIPERACIL/TAZO 3.375 GM VIAL IV ONE (05:27)
[2018-12-03] MEDS ORDERED: NA CHLORIDE 0.9% 100 ML ONE (05:33)
[2018-12-03] MEDS: PIPER/TAZO/NS 3.375gm 3.375 GM/100 ML BAG IVPB SCH ×4 (05:53→23:46)
[2018-12-03] MEDS: MORPHINE 4 MG/ML SYR IV PRN ×3 (05:54→23:47)
[2018-12-03] MEDS: FAMOTIDINE 20 MG/2 ML VIAL IV SCH ×2 (08:46→20:26)
[2018-12-03] MEDS ORDERED: Ringers Lactate 1,000 ML IV ONE ×2 (13:48→17:03)
--- NOTE | 2018-12-03 14:23 | P.CNS ---
Date of Consult: 12/03/18 PC: This 28-year-old male presents emergency room with severe right upper quadrant abdominal pain for diagnosis and treatment. HPC: Patient apparently was seen here before. Was diagnosed with cholecystitis with cholelithiasis possible choledocholithiasis. Was transferred to another facility. He had further workup at that institution and was scheduled for surgery. Apparently in the evening came surgeons went home and he was discharged from the facility without being operated on. He was advised i that should his pain return to go to the nearest emergency room. emergency room PMH: NAD PSHx: Denies any prior surgeries SOC: No known allergies SYS REVIEW: Works as a contractor. States he is in good shape. No cough, wheeze, shortness of breath. No loss await, no jaundice, denies any urinary complaints. Good exercise tolerance. O/E awake alert comfortable at the moment HEENT: Within normal limits Chest: Chest movement equal bilaterally ABD: Marked tenderness in the right upper quadrant LOCO: Intact DATA: Elevated white cell count IMPRESSION: Cholecystitis with cholelithiasis PLAN: I will take to the operating room for laparoscopic possible open cholecystectomy with cholangiogram. The risks of this procedure have been discussed. The possibility of bleeding, infection, injury to bile ducts blood vessels and intestines has been described. The possible need for an open and/ or further surgeries and procedures was discussed. The fact that if he had a stone in his common bile duct. He may require further procedures to have it removed He understands and wants to proceed.
[2018-12-03] MEDS ORDERED: FENTANYL CITR 100 MCG/2 ML ONE ×2 (14:43→16:31)
[2018-12-03] MEDS ORDERED: PROPOFOL 200 MG/20 ML VIAL IV ONE (14:43)
[2018-12-03] MEDS ORDERED: MIDAZOLAM HCL 2 MG/2 ML INJ ONE (14:43)
[2018-12-03] MEDS ORDERED: LIDOCAINE 2% MPF 5 ML VIAL ONE (14:43)
[2018-12-03] MEDS ORDERED: ROCURONIUM 50 MG/5 ML VIAL IV ONE ×2 (14:43→16:47)
[2018-12-03] MEDS ORDERED: NEOSTIGMINE 1 MG/ML -10 ML VIAL ONE (17:19)
[2018-12-03] MEDS ORDERED: GLYCOPYRROLATE 0.2 MG/ML SYR ONE (17:20)
[2018-12-03] MEDS: HYDROMORPHONE HCL 1 MG/ML INJ ONE ×2 (17:45→17:55)
[2018-12-03] MEDS: HYDROMORPHONE HCL 2 MG/ML inj ONE ×4 (18:10→18:25)
--- NOTE | 2018-12-03 18:20 | RAD REPORT ---
EXAM DESCRIPTION: RADCholangiogram Oper-Xray Or12/03/2018 6:13 pm CLINICAL HISTORY: Abdominal pain FINDINGS: The examination was performed by Dr. Rush. The cystic duct was cannulated and contrast administered. Biliary tree is normal in caliber. The very distal common bile duct is not well opacified Fluoroscopy time 0.1 minute. Three fluoroscopic spot images obtained
[2018-12-03] MEDS ORDERED: Ringers Lactate 1,000 ML IV SCH (21:00)
[2018-12-03] MEDS: ONDANSETRON 4 MG/2 ML VIAL IV PRN (23:46)
[2018-12-04] MEDS: CEFOXITIN/SWI 1gm 1 GM/10 ML SYR IVP SCH ×2 (00:06→09:17)
[2018-12-04] MEDS: HYDROCODONE/APAP 7.5/325 MG TAB PO PRN ×2 (02:09→11:59)
[2018-12-04] MEDS ORDERED: PIPER/TAZO/NS 3.375gm 3.375 GM/100 ML BAG ONE (02:50)
[2018-12-04] MEDS: MORPHINE 4 MG/ML SYR IV PRN ×3 (03:41→16:24)
[2018-12-04] MEDS: PIPER/TAZO/NS 3.375gm 3.375 GM/100 ML BAG IVPB SCH ×2 (05:07→11:59)
[2018-12-04] MEDS: ONDANSETRON 4 MG/2 ML VIAL IV PRN ×2 (06:55→16:24)
[2018-12-04] MEDS: FAMOTIDINE 20 MG/2 ML VIAL IV SCH (09:17)
--- NOTE | 2018-12-04 15:22 | P.OP ---
Preoperative diagnosis: Acute cholecystitis with cholelithiasis Postoperative diagnosis: The same Primary procedure: Laparoscopic cholecystectomy Secondary procedure: Cholangiogram Anesthesia: General Estimated blood loss: Less than 20 cc Specimen: 1 gallbladder and contents Operative Technique: The patient was brought to the operating room and placed supine on the table. After the induction of adequate general endotracheal anesthesia, the area of the abdomen is prepped with a DuraPrep solution, and he was draped in usual aseptic manner. A subumbilical incision was made. This was brought down through the skin and subcutaneous tissue. The Visiport was now used to enter the peritoneal cavity and created pneumoperitoneum to approximately 12 mm of mercury. Under direct vision a 5 mm trocar was placed in the upper midline, and 2 other 5 mm trocars on the right lateral side of the abdomen. The patient was then placed in reverse Trendelenburg. The table was rolled to the left. We could now visualize right upper quadrant. We could see an acutely inflamed gallbladder with omentum adherent to the serosal surface. These adhesions were gently taken down to expose the full length of the gallbladder. Down towards Caroline's pouch we could see that the gallbladder itself actually was quite elongated and was covered by an inflammatory film of the surrounding omentum. Once again gentle dissection was began to expose the cystic duct and artery. The artery actually had Afrin run in came across the gallbladder going up towards the right upper lobe of the liver but actually history BD gets itself on the surface of the gallbladder itself. Having identified that this was indeed the cystic artery the cystic artery was clipped and divided. Lateral traction lattice to bring up and expose the cystic duct. He had a long towards 1 indeed torturous tract. We dissected down to to the junction of the gallbladder with the cystic duct. After having milk cystic duct. A clip was placed between it and the gallbladder itself. An opening was made into the cystic duct through which we obtained a normal intraoperative cholangiogram. The cholangiocatheter was now removed. Clips were placed on the distal portion of the cystic duct. The gallbladder was now dissected free from the liver bed placed into an Endo-Catch and brought up through the umbilical trocar site due to the size of the gallbladder any manner distention it was necessary to widen this umbilical area slightly. The gallbladder was now expressed out through the skin incision. At this point the abdomen is inspected to ensure adequate hemostasis. The umbilical trocar defect was closed using 2 absorbable sutures and the Endo Close. The abdomen was now irrigated , and the fluid aspirated from the peritoneal cavity. The anterior abdominal wall was MARIELENA blocked using 0.25% Marcaine. At the end of the procedure the patient was in a stable condition when sent to the recovery room. Needle sponge instrument count were correct Complications: None Transferred to: Recovery Room Condition: Good
[2018-12-04] MEDS ORDERED: TOPIRAMATE 100 MG TAB PO SCH (21:00)
== END 2018-12-04 16:51 | disposition home or self-care (01) ==
LOC: ER 00:38 → ERHOLD 04:09 → 2ND 04:36
PROVIDERS: ADMIT Surgery; ATTEND Surgery
PROC: 0FT44ZZ Resection of Gallbladder, Percutaneous Endoscopic Approach (ICD-10-PCS; principal; 2018-12-04)
PROC: BF13YZZ Fluoroscopy of Gallbladder and Bile Ducts using Other Contrast (ICD-10-PCS; 2018-12-04)
DX: K80.12 Calculus of gallbladder with acute and chronic cholecystitis without obstruction (principal); K66.0 Peritoneal adhesions (postprocedural) (postinfection); F17.210 Nicotine dependence, cigarettes, uncomplicated
CPT/HCPCS: 36415; 74300; 80048; 80076; 83690; 85025; 88304; 96365; 96367; 96375; 99285; G0378; J0694; J1170; J2175; J2250; J2405; J2543; J2704; J2710; J3010

== ENCOUNTER 2019-02-12 06:12 | Emergency (ER) | payer SELFPAY ==
[2019-02-12] MEDS ORDERED: MORPHINE 4 MG/ML SYR ONE (06:51)
[2019-02-12] MEDS ORDERED: ONDANSETRON 4 MG/2 ML VIAL ONE (06:52)
[2019-02-12] MEDS ORDERED: NA CHLORIDE 0.9% 1,000 ML ONE (06:52)
[2019-02-12 07:17] LABS: Absolute Lymphocytes (CBC) 1.9 K/uL (0.7-4.9); Basophils % 0.8 % (0-1.3); Hematocrit 46.1 % (39.6-49.0); Lymphocytes % 27.7 % (15.3-44.8); RBC Red Blood Cell Count 5.19 M/uL (4.33-5.43)
[2019-02-12 07:21] LABS: Bilirubin Direct 0.2 mg/dL (0-0.2); Bilirubin Total 0.5 mg/dL (0.2-1.0); Potassium 4.1 mmol/L (3.5-5.1); Protein, Total 7.5 g/dL (6.4-8.2)
--- NOTE | 2019-02-12 07:32 | RAD REPORT ---
EXAM DESCRIPTION: CTAbdomen Pelvis W Contrast - 02/12/2019 7:13 am CLINICAL HISTORY: Abdominal pain. abdominal pain COMPARISON: Abdomen Pelvis W Contrast dated 11/29/2018 TECHNIQUE: Biphasic CT imaging of the abdomen and pelvis was performed with 100 ml non-ionic IV cont rast. All CT scans are performed using dose optimization technique as appropriate and may include automated exposure control or mA/KV adjustment according to patient size. FINDINGS: The lung bases are clear.Cholecystectomy clips. The liver, spleen, pancreas, adrenal glands and kidneys are within normal limits. No bowel obstruction, free air, free fluid or abscess. The appendix is normal. No evidence of signi ficant lymphadenopathy. No suspicious bony findings. IMPRESSION: No acute intra-abdominal or pelvic finding.
[2019-02-12] MEDS ORDERED: MAGNE/ALUM HYDROXD 30 ML UCUP ONE (07:34)
[2019-02-12] MEDS ORDERED: LIDOCAINE VISCOUS 2% SOLN 15 ML UDC ONE (07:35)
--- NOTE | 2019-02-12 07:55 | EDPHYS ---
Physician Documentation [facility] Name: Fawad Olivarez Age: 28 yrs Sex: Male : 1990 Arrival Date: 02/12/2019 Time: 06:12 Bed 17 Private MD: ED Physician Miguel Osborne HPI: 02/12 06:35 This 28 yrs old Male presents to ER via Ambulatory with complaints of jmm Abdominal Pain. 06:35 The patient presents with abdominal pain. Onset: The symptoms/episode began/occurred 1 jmm day(s) ago. The symptoms do not radiate. Associated signs and symptoms: Pertinent negatives: diarrhea, fever, vomiting. The symptoms are described as achy. Modifying factors: The symptoms are alleviated by nothing, the symptoms are aggravated by nothing. The patient has experienced a previous episode. This is a 28 year old male 1.5 months s/p cholecystectomy that presents to the ED with complaints of epigastric pain which developed yesterday and worsened this morning. Patient states drinking 4 to 5 beers this past Monday. Denies fever. . Historical: - Allergies: 06:20 No Known Allergies; - Home Meds: 06:20 topiramate 200 mg oral tab 1 tab 2 times per day [Active]; - PMHx: 06:20 GALLSTONES; Seizures; - PSHx: 06:20 Cholecystectomy; - Immunization history:: Adult Immunizations unknown, Adult Immunizations. - Social history:: Smoking status: Patient/guardian denies using tobacco, Smoking status: Patient/guardian denies using tobacco. - Ebola Screening: : Patient negative for fever greater than or equal to 101.5 degrees Fahrenheit, and additional compatible Ebola Virus Disease symptoms Patient denies exposure to infectious person. ROS: 06:35 Constitutional: Negative for fever, chills, and weight loss, Cardiovascular: Negative jmm for chest pain, palpitations, and edema, Respiratory: Negative for shortness of breath, cough, wheezing, and pleuritic chest pain. 06:35 Abdomen/GI: Positive for abdominal pain, nausea. 06:35 All other systems are negative. Exam: 06:35 Head/Face: atraumatic. Eyes: EOMI, no conjunctival erythema appreciated ENT: Moist jmm Mucus Membranes Neck: Trachea midline, Supple Chest/axilla: Normal chest wall appearance and motion. Cardiovascular: Regular rate and rhythm. No edema appreciated Respiratory: Normal respirations, no respiratory distress appreciated 06:35 Constitutional: The patient appears alert, awake, uncomfortable. 06:35 Abdomen/GI: Inspection: abdomen appears normal, Bowel sounds: normal, Palpation: soft, moderate abdominal tenderness, in the epigastric area. 06:35 Back: ROM is normal. 06:35 Musculoskeletal/extremity: ROM: intact in all extremities. 06:35 Skin: Appearance: Color: normal in color. 06:35 Neuro: Orientation: is normal, Mentation: is normal, Memory: is normal. 06:35 Psych: Behavior/mood is pleasant, cooperative. Vital Signs: 06:18 BP 117 / 69; Pulse 58; Resp 18; Temp 97.8; Pulse Ox 99% on R/A; Weight 108.86 kg; wh Height 6 ft. 5 in. (195.58 cm); 07:10 Pain 4/10; jl7 07:40 BP 108 / 65; Pulse 53; Resp 16 S; Pulse Ox 100% on R/A; Pain 9/10; jl7 07:54 Pain 3/10; jl7 06:18 Body Mass Index 28.46 (108.86 kg, 195.58 cm) wh MDM: 06:29 Patient medically screened. [facility] 07:52 Data reviewed: vital signs, nurses notes. Counseling: I had a detailed discussion with perez the patient and/or guardian regarding: the historical points, exam findings, and any diagnostic results supporting the discharge/admit diagnosis, radiology results, the need for outpatient follow up, to return to the emergency department if symptoms worsen or persist or if there are any questions or concerns that arise at home. ED course: Pain is relieved in the ED with GI cocktail. patient is advised to follow up with GI for further evaluation. patient is otherwise given strict return precautions. Patient understood and agrees with the plan of care. . 02/12 06:33 Order name: Basic Metabolic Panel; Complete Time: 07: [facility] 02/12 06:33 Order name: CBC with Diff; Complete Time: 07: [facility] 02/12 06:33 Order name: Creatinine for Radiology; Complete Time: 07:26 [facility] 02/12 06:33 Order name: Hepatic Function; Complete Time: 07: [facility] 02/12 06:33 Order name: Lipase; Complete Time: 07: [facility] 02/12 06:52 Order name: Urine Dipstick--Ancillary (enter results) 2 02/12 06:33 Order name: IV Saline Lock; Complete Time: 06:53 [facility] 02/12 06:33 Order name: Labs collected and sent; Complete Time: 06:53 [facility] 02/12 06:33 Order name: Urine Dipstick-Ancillary (obtain specimen); Complete Time: 06:53 [facility] 02/12 06:33 Order name: CT Abd/Pelvis - IV Contrast Only; Complete Time: 07:37 [facility] Administered Medications: 06:58 Drug: morphine 4 mg {Note: RASS 0.} Route: IVP; Site: right antecubital; 07:10 Follow up: Pain 4/10 Adult; Response: No adverse reaction; Pain is decreased jl7 06:58 Drug: Zofran 4 mg Route: IVP; Site: right antecubital; 07:00 Follow up: Response: No adverse reaction jl7 06:58 Drug: NS 0.9% 1000 ml Route: IV; Rate: 1 bolus; Site: right antecubital; 07:55 Follow up: IV Status: Completed infusion jl7 07:43 Drug: GI Cocktail without - (Maalox Suspension 30 ml, Lidocaine Liquid 2 % 15 da2 ml) Route: PO; 07:54 Follow up: Pain 3/10 Adult; Response: No adverse reaction; Pain is decreased jl7 Disposition: 02/12/19 07:54 Discharged to Home. Impression: Upper abdominal pain, unspecified. - Condition is Stable. - Discharge Instructions: Abdominal Pain, Adult. - Prescriptions for Carafate 1 gram Oral Tablet - take 1 tablet by ORAL route 4 times per day take on an empty stomach, beginning on waking and last dose at bedtime; 100 tablet. Pepcid 20 mg Oral Tablet - take 1 tablet by ORAL route every 12 hours for 10 days; 20 tablet. - Medication Reconciliation Form, Thank You Letter, Antibiotic Education, Prescription Opioid Use, Work release form form. - Follow up: Delfino Garcia MD; When: 2 - 3 days; Reason: Recheck today's complaints, Continuance of care, Re-evaluation by your physician. Signatures: Dispatcher [employer] EDDread Mi PA PA jmm Leal, Jahala, RN RN jl7 Deana Felix Dennis, RN RN da2 Corrections: (The following items were deleted from the chart) 08:03 07:54 02/12/2019 07:54 Discharged to Home. Impression: Upper abdominal pain, jl7 unspecified. Condition is Stable. Forms are Medication Reconciliation Form, Thank You Letter, Antibiotic Education, Prescription Opioid Use. Follow up: Delfino Garcia; When: 2 - 3 days; Reason: Recheck today's complaints, Continuance of care, Re-evaluation by your physician. perez
--- NOTE | 2019-02-12 07:55 | ER ---
Nurse's Notes [facility] Name: Fawad Olivarez Age: 28 yrs Sex: Male : 1990 Arrival Date: 02/12/2019 Time: 06:12 Bed 17 Private MD: Diagnosis: Upper abdominal pain, unspecified Presentation: 02/12 06:17 Presenting complaint: Patient states: C/O on and off abdominal pain since yesterday, wh denies NVD. PT had Hx of Lap Minerva about a mount ago. Transition of care: patient was not received from another setting of care. Onset of symptoms was February 11, 2019. Risk Assessment: Do you want to hurt yourself or someone else? Patient reports no desire to harm self or others. Initial Sepsis Screen: Does the patient meet any 2 criteria? No. Patient's initial sepsis screen is negative. Does the patient have a suspected source of infection? Yes: Acute abdominal pain. Care prior to arrival: None. 06:17 Method Of Arrival: Ambulatory 06:17 Acuity: LASHAY 3 Historical: - Allergies: 06:20 No Known Allergies; - Home Meds: 06:20 topiramate 200 mg oral tab 1 tab 2 times per day [Active]; - PMHx: 06:20 GALLSTONES; Seizures; - PSHx: 06:20 Cholecystectomy; - Immunization history:: Adult Immunizations unknown, Adult Immunizations. - Social history:: Smoking status: Patient/guardian denies using tobacco, Smoking status: Patient/guardian denies using tobacco. - Ebola Screening: : Patient negative for fever greater than or equal to 101.5 degrees Fahrenheit, and additional compatible Ebola Virus Disease symptoms Patient denies exposure to infectious person. Screenin:20 Abuse screen: Denies threats or abuse. Denies injuries from another. Nutritional screening: No deficits noted. Tuberculosis screening: No symptoms or risk factors identified. Fall Risk None identified. Assessment: 06:21 General: Appears in no apparent distress. uncomfortable, Behavior is calm, cooperative, wh appropriate for age. Pain: Complains of pain in epigastric area Pain does not radiate. Pain currently is 8 out of 10 on a pain scale. Quality of pain is described as aching, Pain began 1 day ago. Neuro: Level of Consciousness is awake, alert, obeys commands, Oriented to person, place, time, situation, Appropriate for age. Cardiovascular: Heart tones S1 S2. Respiratory: Airway is patent Respiratory effort is even, unlabored, Respiratory pattern is regular, symmetrical. GI: Abdomen is flat, non-distended, Bowel sounds present X 4 quads. Abd is soft and non tender X 4 quads. : No signs and/or symptoms were reported regarding the genitourinary system. EENT: No signs and/or symptoms were reported regarding the EENT system. Derm: Skin is intact, is healthy with good turgor, Skin is pink, warm \T\ dry. normal. Musculoskeletal: Circulation, motion, and sensation intact. 07:40 Reassessment: Pt returned from CT and reports increased epigastric pain, rated 9/10, jl7 ERP notified, see MAR for orders. 07:54 Reassessment: Pt reports decreased pain, rated 3/10 at this time, ERP notified. jl7 Vital Signs: 06:18 BP 117 / 69; Pulse 58; Resp 18; Temp 97.8; Pulse Ox 99% on R/A; Weight 108.86 kg; Height 6 ft. 5 in. (195.58 cm); 07:10 Pain 4/10; jl7 07:40 BP 108 / 65; Pulse 53; Resp 16 S; Pulse Ox 100% on R/A; Pain 9/10; jl7 07:54 Pain 3/10; jl7 06:18 Body Mass Index 28.46 (108.86 kg, 195.58 cm) ED Course: 06:12 Patient arrived in ED. ds1 06:14 Deana Felix is Primary Nurse. 06:18 Triage completed. 06:20 Patient has correct armband on for positive identification. Bed in low position. Call light in reach. Side rails up X 1. Pulse ox on. NIBP on. 06:20 Arm band placed on. 06:21 Dread Maloney PA is PHCP. [facility] 06:21 Miguel Osborne MD is Attending Physician. [facility] 06:25 Inserted saline lock: 20 gauge in right antecubital area, using aseptic technique. Blood collected. 07:13 CT Abd/Pelvis - IV Contrast Only In Process Unspecified. EDMS 07:53 Delfino Garcia MD is Referral Physician. jmm 08:00 No provider procedures requiring assistance completed. IV discontinued, intact, jl7 bleeding controlled, No redness/swelling at site. Pressure dressing applied. Administered Medications: 06:58 Drug: morphine 4 mg {Note: RASS 0.} Route: IVP; Site: right antecubital; 07:10 Follow up: Pain 4/10 Adult; Response: No adverse reaction; Pain is decreased [facility] 06:58 Drug: Zofran 4 mg Route: IVP; Site: right antecubital; 07:00 Follow up: Response: No adverse reaction [facility] 06:58 Drug: NS 0.9% 1000 ml Route: IV; Rate: 1 bolus; Site: right antecubital; 07:55 Follow up: IV Status: Completed infusion [facility] 07:43 Drug: GI Cocktail without - (Maalox Suspension 30 ml, Lidocaine Liquid 2 % 15 da2 ml) Route: PO; 07:54 Follow up: Pain 3/10 Adult; Response: No adverse reaction; Pain is decreased [facility] Outcome: 07:54 Discharge ordered by MD. [facility] 08:00 Discharged to home ambulatory. [facility] 08:00 Condition: stable 08:00 Discharge instructions given to patient, Instructed on discharge instructions, follow up and referral plans. medication usage, Demonstrated understanding of instructions, follow-up care, medications, Prescriptions given X 2. 08:03 [address] [facility] Signatures: Dispatcher [employer] EDMS Dread Maloney PA PA jmm Sanford, Demi ds1 Charissa Méndez RN RN jl7 Deana Felix Ankush Hernandez RN RN da2
[2019-02-12 08:09] VITALS: TEMP 97.8
[2019-02-12 08:11] VITALS: BP 108/65; O2SAT 100
[2019-02-12 08:19] LABS: Urine Blood NEGATIVE (NEG); Urine Glucose NEGATIVE (NEG); Urine Protein NEGATIVE (NEG); Urine Specific Gravity 1.025 (1.005-1.030); Urine pH 5.5 (5.0-7.0)
== END 2019-02-12 08:03 | disposition home or self-care (01) ==
LOC: ER 06:12
DX: R10.10 Upper abdominal pain, unspecified (principal); G40.909 Epilepsy, unspecified, not intractable, without status epilepticus; Z90.49 Acquired absence of other specified parts of digestive tract
CPT/HCPCS: 36415; 74177; 80048; 80076; 81003; 83690; 85025; 96361; 96374; 96375; 99284; J2405; J7030; Q9967